=== PATIENT | female | born 1985 | race Caucasian/White ===

== ENCOUNTER 2022-09-11 08:10 | Emergency (ER) | payer BC, SELFPAY ==
[2022-09-11 09:14] VITALS: BP 121/88; PULSE 76; RESP 16; TEMP 36.6; O2SAT 97; BMI 32.4
--- NOTE | 2022-09-11 09:47 | CRLHL7_ITS ---
For Patients: As a result of the Century Cures Act, medical imaging exams and procedure reports are released immediately into your electronic medical record. You may view this report before your referring provider. If you have questions, please contact your health care provider. HISTORY: Calf pain. Injury. TECHNIQUE: Ultrasound of the left lower extremity deep veins using perez-scale, color Doppler, and spectral Doppler. COMPARISON: None. FINDINGS: Left: Common femoral, femoral, and popliteal veins are patent and compressible with normal response to augmentation. Deep femoral vein is patent and compressible. - Posterior tibial, peroneal, and gastrocnemius veins are patent and compressible - Greater saphenous vein is patent and compressible. - In the medial calf at the area of pain there is a small, approximately 1 cm irregularly shaped hypoechoic region at the distal margin of a muscle or within the fascial plane between muscle and subcutaneous fat. IMPRESSION: 1. No left lower extremity DVT. 2. Small hypoechoic region at the distal margin of a muscle or along the fascial plane between muscle and subcutaneous fat in the medial calf at the area of pain. Appearance is nonspecific but given history could be small area of muscle tearing or small hematoma. This area could be better assessed with MRI if warranted. Dictated by Rory Song MD @ 09/11/2022 12:01:21 PM (Electronically Signed)
--- NOTE | 2022-09-11 09:47 | ED.GENADULT ---
HPI - General Adult General Chief complaint: Lower Extremity Swelling Stated complaint: LT leg swelling and pain Time Seen by Provider: 09/11/22 08:52 History of Present Illness HPI narrative: This 37-year-old female comes in with pain in her left calf. She states that she has been having some pain in this calf for about 2 or 3 weeks but was able to function rather normally. Yesterday she was playing basketball and there was 1 moment where she had sudden onset of pain and heard a pop in the mid posterior calf musculature of the left lower extremity. She is able to ambulate. She has pain with dorsiflexion of that left foot. There is no particular swelling or bruising of the left lower extremity compared to the right. She does not have any history of blood clot. Related Data Previous Rx's Medication Instructions Recorded Crutches- Adult #1 ea 09/11/22 Allergies Allergy/AdvReac Type Severity Reaction Status Date / Time amoxicillin Allergy Mild Rash Verified 09/11/22 09:19 Review of Systems Status of ROS: Reports: 10 or more systems reviewed and unremarkable except as noted in History and below Narrative: Constitutional: No fevers, no weight gain or loss. Eyes: No discharge. No vision changes. HENT: No congestion, no sore throat, no ear pain. Cardiovascular: No chest pain, no palpitations. Respiratory: No shortness of breath, no wheezes, no cough. Gastrointestinal: No abdominal pain, no vomiting, no diarrhea. Genitourinary: No dysuria, no hematuria. Musculoskeletal: Left calf pain with associated decreased range of motion. Skin: No rashes, no pruritis. Neurological: No dizziness, weakness, sensory change, speech change. Endo/Heme/Allergies: No bruising or bleeding. No polydipsia. Pysch: no suicidality, no anxiety, no insomnia. All other systems reviewed and are negative. PFSH PFSH Social History Smoking Status: Never smoker Do you use any of these nicotine containing products: None Second hand tobacco smoke exposure: No How often do you have a drink containing alcohol: monthly or less AUDIT-C Alcohol total score: 1 Non-prescribed substance use: denies use Exam Narrative: Exam Narrative: Constitutional: Well-developed, well-nourished, no acute distress. HEENT: Normocephalic, atraumatic. Neck: Normal range of motion. Nontender. Supple. Heart: Regular. No murmurs. Normal rate. Intact distal pulses. Lungs: Clear to auscultation. No chest discomfort. No wheezes, rhonchi, or rales. Abdomen: Normal bowel sounds. Nontender. No rebound tenderness. Genitalia: Deferred. Back: No midline tenderness. Normal range of motion. Extremities: Pain in left calf region that is located about [address] between the knee to the ankle. There is no significant swelling and no bruising. There is no palpable step-off. Bray's sign is negative. Skin: Intact. No rash. Warm. No erythema or pallor. Neurologic: No altered sensation. No weakness. Alert and oriented. Psychiatric: No suicidality. No anxiety or depression. No insomnia. Nursing notes and vitals signs are reviewed. Const: Vital Signs, click to edit/add: Vital Signs - 24 hr 09/11/22 09:14 Temperature 97.8 F Pulse Rate [Right Pulse Oximeter] 76 Respiratory Rate 16 Blood Pressure [Le ft Upper Arm] 121/88 Pulse Oximetry 97 Oxygen Delivery Me thod Room Air Course Vital Signs Vital signs: Initial Vital Signs Temperature 97.8 F 09/11/22 09:14 Temperature Source Temporal Artery Scan 09/11/22 09:14 Pulse Rate 76 09/11/22 09:14 Respiratory Rate 16 09/11/22 09:14 Blood Pressure 121/88 09/11/22 09:14 Blood Pressure Mean 99 09/11/22 09:14 Blood Pressure Position Supine 09/11/22 09:14 Pulse Oximetry 97 09/11/22 09:14 Oxygen Delivery Method 09/11/22 09:14 Vital Signs Temperature 97.8 F 09/11/22 09:14 Pulse Rate 76 09/11/22 09:14 Respiratory Rate 16 09/11/22 09:14 Blood Pressure 121/88 09/11/22 09:14 Pulse Oximetry 97 09/11/22 09:14 Oxygen Delivery Method 09/11/22 09:14 Temperature 97.8 F 09/11/22 09:14 Pulse Rate 76 09/11/22 09:14 Respiratory Rate 16 09/11/22 09:14 Blood Pressure 121/88 09/11/22 09:14 Pulse Oximetry 97 09/11/22 09:14 Oxygen Delivery Method 09/11/22 09:14 Medical Decision Making MDM Narrative Medical decision making narrative: This patient comes in with pain in her left lower calf musculature. She felt a pop yesterday and wonders if she had a rupture of the muscle. She did have an ultrasound of the left lower extremity which shows no sign of deep venous thrombus. There is a finding that is suggestive of partial muscle tear. An MRI would better characterize this but given the patient's reassurance with no blood clot in the mechanism of injury that is suspicious for a muscle tear that is not complete rupture such imaging is not necessary at this time. Her Bray's test is displaying intact plantar flexion mechanism. Patient is able to ambulate but has distinct and severe pain attempting to step forward and plantar flex her left foot. She received crutches to assist in ambulating. She states that she will use [id number] medicines as needed and directed. Imaging Data US L Lower Extremity: Radiologist's impression: 1. No left lower extremity DVT. 2. Small hypoechoic region at the distal margin of a muscle or along the fascial plane between muscle and subcutaneous fat in the medial calf at the area of pain. Appearance is nonspecific but given history could be small area of muscle tearing or small hematoma. This area could be better assessed with MRI if warranted. Discharge Plan Discharge Clinical Impression: Gastrocnemius muscle tear Patient Disposition: Home, Self-Care Condition: Stable Additional Instructions: Use crutches as needed. Increase ambulating as tolerated. Follow up with MD or return if worsening. Prescriptions: New (DME) Crutches- Adult Misc See Rx Instructions .ROUTE .MEDSUPPLY Qty: 1 0RF Rx Instructions: As directed Follow Up/Referrals: Rei Pat MD [Primary Care Provider] - Stand Alone Forms: [employer] Info Instructions
[2022-09-11 10:00] VITALS: BP 118/85; PULSE 72; RESP 18; O2SAT 97
--- OUTSIDE RECORDS SUMMARY | 2022-09-11 10:07 | XMS_ITS | Encounter Summary ---
:1985 Author Organization [facility] Address [address] [place] [id number] Care Team Providers Name Role Phone Rei Pat Primary Care Provider [facility] Unavailable Encounter Details Date Type Department Care Team Description 10/01/2019 Travel Social History Tobacco Use Types Packs/Day Years Used Date Smoking Tobacco: Never Smokeless Tobacco: Never Alcohol Use Standard Drinks/Week Comments Never 0 (1 standard drink = 0.6 oz pure alcoho l) Alcohol Habits Answer Date Recorded How often do you have a drink containing alcohol? Never 10/01/2019 How many drinks containing alcohol do you have on a typical Not asked day when you are drinking? How often do you have six or more drinks on one occasion? No t asked Sex Assigned at Date Recorded Not on file documented as of this encounter Plan of Treatment Not on filedocumented as of this encounter Visit Diagnoses Not on filedocumented in this encounter Care Teams Bark Peeler Relationship Specialty Start Date End Date Rei Pat PCP - General Family Medicine 10/01/19 [address] [place] [address] [facility] PCP - [facility] [place] [address] [place] [id number] documented as of this encounter
--- OUTSIDE RECORDS SUMMARY | 2022-09-11 10:07 | XMS_ITS | Encounter Summary ---
:1985 Author Organization [facility] Address [address] [place] [id number] Care Team Providers Name Role Phone Rei Pat Primary Care Provider [facility] Unavailable Reason for Referral (Routine) - Closed Specialty Diagnoses / Procedures Referred By Contact Refer red To Contact Procedures Shahriar Gupta MD Return to previous diet [address] [place] [place] [address] Referral ID Status Reason Start Date Expiration Date Visits Requ ested Visits Authorized [id number] Closed 10/02/2019 10/01/2020 1 1 ER MAN (Routine) - Closed Specialty Diagnoses / Procedures Referred By Contact Refer red To Contact Procedures Shahriar Gupta MD Normal activity as tolerated [address] [place], [place] [address] Referral ID Status Reason Start Date Expiration Date Visits Requ ested Visits Authorized [id number] Closed 10/02/2019 10/01/2020 1 1 ER MAN (Routine) - Closed Specialty Diagnoses / Procedures Referred By Contact Refer red To Contact Shahriar Gupta MD Hoffert, Kyle A [address] [facility] [place], [place] [address] [place] [address] Fax: Referral ID Status Reason Start Date Expiration Date Visits Requ ested Visits Authorized [id number] Closed 10/02/2019 10/01/2020 1 1 ER MAN (Routine) - Closed Specialty Diagnoses / Procedures Referred By Contact Refer red To Contact Procedures Shahriar Gupta MD Other: [address] [address] Referral ID Status Reason Start Date Expiration Date Visits Requ ested Visits Authorized [id number] Closed 10/02/2019 10/01/2020 1 1 ER MAN (Routine) - Closed Specialty Diagnoses / Procedures Referred By Contact Refer red To Contact Procedures Shahriar Gupta MD Any questions or concerns [address] [address] Referral ID Status Reason Start Date Expiration Date Visits Requ ested Visits Authorized [id number] Closed 10/02/2019 10/01/2020 1 1 ER MAN (Routine) - Closed Specialty Diagnoses / Procedures Referred By Contact Refer red To Contact Procedures Shahriar Gupta MD Discharge [address] [address] Referral ID Status Reason Start Date Expiration Date Visits Requ ested Visits Authorized [id number] Closed 10/02/2019 10/01/2020 1 1 ER MAN Reason for Visit Reason Comments Post-surgical post op complications Inpatient Admission Specialty Diagnoses / Procedures Referred By Contact Refer red To Contact Diagnoses Vasovagal syncope Referral ID Status Reason Start Date Expiration Date Visits Requ ested Visits Authorized [id number] 1 1 Encounter Details Date Type Department Care Team Description 10/01/2019 - Emergency W2 Lion Pruett MD [address] [facility] [address] [place] [address] Vasovagal syncope 10/02/2019 33[address] [facility]-Hospitalist [address] [place] [address] [address] Miladys Thomas MD [address] [place] [id number] [place] [address] Social History Tobacco Use Types Packs/Day Years [...] on file documented as of this encounter Last Filed Vital Signs Vital Sign Reading Time Taken Comments Blood Pressure 104/61 10/02/2019 1:25 PM TILLER MAN Pulse 83 10/02/2019 1:25 PM TILLER MAN Temperature 37 ??C (98.6 ??F) 10/02/2019 1:25 PM TILLER MAN Respiratory Rate 16 10/02/2019 1:25 PM TILLER MAN Oxygen Saturation 99% 10/02/2019 1:25 PM TILLER MAN Inhaled Oxygen Concentration - - Weight 79.5 kg (175 lb 5 oz) 10/01/2019 6:00 PM TILLER MAN Height 172.1 cm (5' 7.76) 10/01/2019 6:00 PM TILLER MAN Body Mass Index 26.85 10/01/2019 6:00 PM TILLER MAN documented in this encounter Discharge Summaries Shahriar Gupta MD - 10/02/2019 12:45 PM CST Images from the original note were not included. . [facility] DIS[facility]GE SUMMARY Patient Name: Sanjana Guzman Date of : 1985 Attending Provider: Tabatha-Hospitalist Admission Date: 10/01/2019 Discharge Date: 10/02/2019 She will be discharged on 10/02/19 to home. DISCHARGE DIAGNOSES: Vasovagal Syncope Acute Blood Loss anemia from surgrery DISCHARGE MEDICATIONS: Current Discharge Medication List UNREVIEWED MEDICATIONS Details ciprofloxacin HCl (CIPRO) 500 mg oral tablet TAKE 1 TABLET BY MOUTH TWICE A DAY STARTING THE DAY AFTER SURGERY. TAKE UNTIL ALL GONE Refills: 0 Lactobac no.41/Bifidobact no.7 (PROBIOTIC-10 ORAL) Take 1 capsule by mouth once daily. multivitamin (CERTAVITE) 18-400 mg-mcg oral tablet Take 1 tablet by mouth once daily. ondansetron (ZOFRAN) 8 mg oral ODT DISSOLVE 1 TABLET IN MOUTH EVERY 8 HOURS NEEDED FOR NAUSEA ANDVOMITING Refills: 0 oxyCODONE, immediate release, (ROXICODONE) 5 mg oral tablet TAKE 1 TABLET BY MOUTH EVERY 4 TO 6 HOURS NEEDED FOR PAIN Refills: 0 scopolamine 1mg/72 hours, 1.5mg, (TRANSDERM-SCOP) 1 mg over 3 days TD patch Apply 1 patch to skin ONCE. FOLLOWUP: No discharge procedures on file. F/u in 2-3 days for hgb check PENDING TEST RESULTS: n/a HOSPITAL COURSE: This is a 34yo female with no PMH who presents from outpatient surgical center ([facility]) after abdominoplasty and bilateral mastopexy. ED physician spoke with surgeon, Dr. Garcia, who said that surgery was uneventful with ~500cc of blood loss. Patient says she was in PACU and had juice and crackers without problems. She as asked to sit up to try to pee and she felt light headed and passed out. She was noted to have HR in the 30s to 40s which recovered shortly after laying patient down. She says she woke up, felt better and was then asked to get up again to try to pee.She tried and again felt lightheaded. HR noted to drop again. She was given 4L IVF as well as a doseof epinephrine and transferred to [facility]. Hgb noted to be down to 7.7 (presumed normal baseline). Patient given fluids and hg trended and stable. Patient safe for discharge home. 1. Vasovagal Syncope - Likely secondary to anesthesia post op. Has had nausea/vomiting, chill and lightheadedness after anesthesia in the past. Received 4L IVF. HR and BP stable currently ?? 2. Acute Blood Loss anemia from surgrery - Pre op hgb 13.3,now down to 7.7, stable at 8 on discharge -f/u with PCP in 2-3 days for hgb check ?? S/p abdominoplasty and bilateral mastopexy - post ob cares per plastic surgery - Abdominal binder and breast binder in place - MISSY drain in place. - prn oxycodone ?? DISCHARGE EXAM: General appearance: awake and alert HEENT: Head - normocephalic, atraumatic Eyes - normal lids and conjunctivae, PERRLA, EOMs intact RESPIRATORY: lungs clear to auscultation and percussion, normal diaphragmatic movement, chest symmetrical BREASTS: breast wrapped with binder. Tender. MISSY drain in place with serosanguinous fluid noted CARDIOVASCULAR: normal S1, normal S2, regular rhythm GASTROINTESTINAL: Abdomen with abdominal binder NEUROLOGIC: alert and oriented x 4, moves all extremities EXTREMITIES: Bilateral leg swelling, non pitting : Voiding independently PSYCHOLOGICAL/JUDGEMENT: intact/normal PROCEDURES: n/a IMAGING: n/a LABS: n/a Shahriar Gupta MD Time: 30 minutes or less ER MAN documented in this encounter Medications at Time of Discharge Medication Sig Dispensed Refills Start Date End Date ciprofloxacin HCl (CIPRO) TAKE 1 TABLET BY 0 03/2019 500 mg oral tablet MOUTH TWICE A DAY STARTING THE DAY AFTER SURGERY. TAKE UNTIL ALL GONE Lactobac no.41/Bifidobact Take 1 capsule by 0 no.7 (PROBIOTIC-10 ORAL) mouth once daily. multivitamin (CERTAVITE) Take 1 tablet by 0 18-400 mg-mcg oral tablet mouth once daily. ondansetron (ZOFRAN) 8 mg DISSOLVE 1 TABLET IN 0 09/18/2019 oral ODT MOUTH EVERY 8 HOURS NEEDED FOR NAUSEA AND VOMITING oxyCODONE, immediate TAKE 1 TABLET BY 0 9 release, (ROXICODONE) 5 mg MOUTH EVERY 4 TO 6 oral tablet HOURS NEEDED FOR PAIN scopolamine 1mg/72 hours, Apply 1 patch to skin 0 1.5mg, (TRANSDERM-SCOP) 1 ONCE. mg over 3 days TD patch documented as of this encounter Progress Notes Agnes Olea RN - 10/02/2019 1:32 PM CST Sanjana Guzman 1985 [id number] P: Discharge A: Discharged via wheelchair to home at 1332 escorted by volunteer I: Discharge information and arrangements included: review of written discharge instructions, reviewof purpose and side effects of new medication, belongings list completed. R:Patient expressed understanding of information. BP 104/61 Pulse 83 Temp 98.6 ??F (37 ??C) Resp 16 Ht 1.721 m (5' 7.76) Wt 79.5 kg (175 lb5 oz) SpO2 99% ? No BMI 26.85 kg/m?? ER MAN Sofiya Rendon RN - 10/02/2019 8:42 AM CST Med-Surg Care Progression Note Type: Shift to shift summary Length of stay: 0 days Code Status: Full Code Reason for Admission: Vasovagal syncope F- Feeding Progression: Tolerating Diet Fluids Progression: IVF, infusing A- Analgesic Progression: Pain at goal with interventions S- Skin Progression: Total Trey Score: 17: Maintaining skin integrity/pressure prevention and Maintaining Skin integrity Safety Progression: Hendrich II Total Score: 4; Not falls risk T- Telemetry Progression: Telemetry can be discontinued when goal met. Treatment Progression: BP monitoring, IVF, tele, pain management. E- Emotional Needs Progression: Participating in cares and Appropriate affect Neuro Progression: Alert and Oriented R- Respiratory Needs Progression: On room air cont. to monitor H- Head OUT of Bed/Activity Progression: didn't get up during shift. U- Ultimate Discharge Progression: TBD Anticipated Disposition: Plan to: Home Anticipated Equipment/Supply Needs: None G- Glycemic Control Progression: Not applicable B- Bowel and Bladder Care Progression: No data recorded On bowel regimen/regular I- Indwelling/Invasive Devices Progression: PIV, infusing. D- DVT/Anticoagulation Progression: SCDs Summary BP (!) 96/59 Pulse 94 Temp 98.5 ??F (36.9 ??C) Resp 18 Ht 5' 7.76 (1.721 m) Wt 79.5 kg (175 lb 5 oz) SpO2 98% ? No BMI 26.85 kg/m?? PT. Alert and oriented. BP running low, notified MD order IVF. Running @ 100 mL/hr. Denied lightheadedness, or dizziness. Significant other at bedside. ER MAN Sofiya Rendon RN - 10/02/2019 6:42 AM CST 10/02/19 0600 RN to Assess Every Four Hours Observation Order Set(s) in Use General (No Observation Order Set);Abdominal Pain Syncope Stable Vital Signs Not Completed No Significant Telemetry Alarms / Events For 8 Hours Completed Acceptable Home Environment Not Completed Completion Of Ordered Tests / Interventions Not Completed Abdominal Pain Resolution Or Significant Improvement Of Pain Completed Stable Vital Signs Not Completed Able To Tolerate Oral Fluids Completed General (No Observation Order Set) Pain Resolved or With Significant Improvement Completed Stable Vital Signs Not Completed Able to Take p.o. Medications Completed Significant Improvement of Clinical Condition Not Completed Adequate Intake and Output Completed Completion of Diagnostic Evaluation Not Completed ER MAN Eloisa Dey RN - 10/01/2019 11:55 PM CST Med-Surg Care Progression Note Type: Admission summary Length of stay: 0 days Code Status: Full Code Reason for Admission: F- Feeding Progression: Tolerating Diet Fluids Progression: SL'd, tolerating PO A- Analgesic Progression: Pain at goal with interventions, PRN Oxy given x2 with relief S- Skin Progression: Total Trey Score: 17: Maintaining skin integrity/pressure prevention, abdominal binder in place Safety Progression: Hendrich II Total Score: 2; Falls risk - interventions in place red socks on, bed alarm on, call light within reach T- Telemetry Progression: On tele, no calls this shift Treatment Progression: Pain control, serial Hgb's, monitor BP E- Emotional Needs Progression: Participating in cares and Appropriate affect, at bedside Neuro Progression: Alert and Oriented R- Respiratory Needs Progression: On room air cont. to monitor RN ordered SAO2 monitor per patient request. Still needs to be set up, passed on to oncoming nurse H- Head OUT of Bed/Activity Progression: has not gotten OOB this shift U- Ultimate Discharge Progression: Pain control, serial Hgb's, monitor BP Anticipated Disposition: Plan to: Home Anticipated Equipment/Supply Needs: None G- Glycemic Control Progression: Not applicable B- Bowel and Bladder Care Progression: No data recorded On bowel regimen/regular, using bed rfias I- Indwelling/Invasive Devices Progression: PIV SL'd. left MISSY drain D- DVT/Anticoagulation Progression: SCDs Summary: MISSY drain to be stripped and emptied Q 2 hrs. BP's have been MD sid paged. Last hgb 9.0, will continue to monitor. Eloisa Dey RN BP 105/64 Pulse 89 Temp 98 ??F (36.7 ??C) Resp 13 Ht 1.721 m (5' 7.76) Wt 79.5 kg (175 lb5 oz) SpO2 95% ? No BMI 26.85 kg/m?? ER MAN Eloisa Dey RN - 10/01/2019 11:55 PM CST 10/01/192004 RN to Assess Every Four Hours Observation Order Set(s) in Use Syncope;General (No Observation Order Set) Syncope Stable Vital Signs Not Completed No Significant Telemetry Alarms / Events For 8 Hours Not Completed Acceptable Home Environment Completed Completion Of Ordered Tests / Interventions Completed General (No Observation Order Set) Pain Resolved or With Significant Improvement Completed Stable Vital Signs Not Completed Able to Take p.o. Medications Completed Significant Improvement of Clinical Condition Not Completed Adequate Intake and Output Completed Completion of Diagnostic Evaluation Not Completed ER MAN Wilian Elise MD - 10/01/2019 8:48 PM CST I was paged that patient pain is now well controlled with oral opioid. Patient chart was reviewed I added Dilaudid 0.4 mg every 2 hour as needed if oral pain medication is not keeping her pain undercontrol. ER MAN Damaris Murphy RN - 10/01/2019 7:18 PM CST P. Admission A. Condition on Admit: alert. Patient/Family Concerns: Patient expressed concern about pain relief, falling and getting help whenneeded. I. Initial Interventions included: administered medication for NAUSEA AND HEADACHE. Orientation to Unit: Patient oriented to how to call for help, name of assigned wound care specialist, PatientInformation booklet, initial physician orders, hourly rounding procedures, belongings checklist. R. Patient expressed understanding of information.. ER MAN Damaris Murphy RN - 10/01/2019 6:55 PM CST Page out to MD to update with B/P of / ER MAN documented in this encounter H&P Notes Miladys Thomas MD - 10/01/2019 4:12 PM CST Images from the original note were not included. [facility] ADMISSION HISTORY AND PHYSICAL Patient Name: Sanjana Guzman Address: [address] [place] [address] Age: 34 y.o. Sex: female Admission Date/Time: 10/01/2019 2:52 PM Primary Care Provider: Rei Pat Informant: patient CHIEF COMPLAINT: Passed out post op HPI: This is a 34yo female with no PMH who presents from outpatient surgical center ([facility]) after abdominoplasty and bilateral mastopexy. ED physician spoke with surgeon,Dr. Garcia, who said that surgery was uneventful with ~500cc of blood loss. Patient says she was in PACU and had juice and crackers without problems. She as asked to sit up to try to pee and she feltlight headed and passed out. She was noted to have HR in the 30s to 40s which recovered shortly after laying patient down. She says she woke up, felt better and was then asked to get up again to try topee. She tried and again felt lightheaded. HR noted to drop again. She was given 4L IVF as well as adose of epinephrine and transferred to [facility]. In the ED, VSS. Patient says she feels much better but has not been up yet. Lab work notable for hgbof 7.7. She is placed in observation for further monitoring. PAST MEDICAL HISTORY: Past Medical History: Diagnosis Date ??? Acne ??? Anemia with 2011 ??? Motion sickness ??? Palpitations ??? Shoulder sprain ??? Tonsillitis ??? Warts PAST SURGICAL HISTORY: Past Surgical History: Procedure Laterality Date ??? COLPOSCOPY, CERVIX ??? HX HERNIA REPAIR ??? HX TONSIL AND ADENOIDECTOMY PRIOR TO ADMISSION MEDICATIONS: Prior to Admission Medications Prescriptions Last Dose Informant Patient Reported? Taking? Lactobac no.41/Bifidobact no.7 (PROBIOTIC-10 ORAL) 09/30/2019 Patient Yes Yes Sig: Take 1 capsule by mouth once daily. ciprofloxacin HCl (CIPRO) 500 mg oral tablet not started Patient Yes Yes Sig: TAKE 1 TABLET BY MOUTH TWICE A DAY STARTING THE DAY AFTER SURGERY. TAKE UNTIL ALL GONE multivitamin (CERTAVITE) 18-400 mg-mcg oral tablet 09/30/2019 Patient Yes No Sig: Take 1 tablet by mouth once daily. ondansetron (ZOFRAN) 8 mg oral ODT 09/30/2019 Patient Yes Yes Sig: DISSOLVE 1 TABLET IN MOUTH EVERY 8 HOURS NEEDED FOR NAUSEA AND VOMITING oxyCODONE, immediate release, (ROXICODONE) 5 mg oral tablet Patient Yes Yes Sig: TAKE 1 TABLET BY MOUTH EVERY 4 TO 6 HOURS NEEDED FOR PAIN scopolamine 1mg/72 hours, 1.5mg, (TRANSDERM-SCOP) 1 mg over 3 days TD patch 10/01/2019 Patient Yes Yes Sig: Apply 1 patch to skin ONCE. Facility-Administered Medications: None ALLERGIES: Amoxicillin FAMILY HISTORY: Family History Problem Relation Name Age of Onset ??? High Blood Pressure Father ??? Heart Disease Father SOCIAL HISTORY: Social History Tobacco Use ??? Smoking status: Never Smoker ??? Smokeless tobacco: Never Used Substance Use Topics ??? Alcohol use: Never Frequency: Never ??? Drug use: Never REVIEW OF SYSTEMS: A comprehensive review of systems was negative except for items noted in the HPI/Subjective: Constitutional: Negative for fever and chills Eyes: Negative for visual disturbance Ears, nose, mouth, throat, face: Negative for nasal congestion, sore throat Respiratory: Negative for cough, dyspnea Cardiovascular: Positive for lightheadedness. Negative for chest pain, chest pressure Gastrointestinal: Positive for nausea, abdominal pain Genitourinary: Negative for dysuria Musculoskeletal: Negative for myalgias and arthralgias Neurological: Negative for headaches and dizziness Psychiatric: Negative for anxiety and depression Otherwise a comprehensive ROS is negative. PHYSICAL EXAM: BP 110/69 Pulse 78 Resp 17 SpO2 99% General appearance: awake and alert HEENT: Head - normocephalic, atraumatic Eyes - normal lids and conjunctivae, PERRLA, EOMs intact RESPIRATORY: lungs clear to auscultation and percussion, normal diaphragmatic movement, chest symmetrical BREASTS: breast wrapped with binder. Tender. MISSY drain in place with serosanguinous fluid noted CARDIOVASCULAR: normal S1, normal S2, regular rhythm GASTROINTESTINAL: Abdomen with abdominal binder NEUROLOGIC: alert and oriented x 4, moves all extremities EXTREMITIES: Bilateral leg swelling, non pitting : Voiding independently PSYCHOLOGICAL/JUDGEMENT: intact/normal PROCEDURES: None IMAGING: none LABS: Results for orders placed or performed during the hospital encounter of 10/01/19 (from the past 24 hour(s)) CBC w/diff Result Value Ref Range WBC 10.1 4.3 - 10.8 K/uL RBC 2.47 (L) 4.20 - 5.40 M/uL HEMOGLOBIN 7.7 (L) 12.0 - 16.0 gm/dL HEMATOCRIT 22.9 (L) 36.0 - 48.0 % MCV 93 80 - 100 fl MCH 31 27 - 33 pg MCHC 34 33 - 36 gm/dL RDW 12.3 11.5 - 14.5 % PLATELET COUNT 202 150 - 400 K/UL MPV 10.6 6.5 - 12 PMN % 90.6 % IG% 0.3 <=1.0 % LYMPH % 3.6 % MONO % 5.4 % EOS % 0.0 % BASO % 0.1 % PMN ABSOLUTE 9.16 (H) 1.80 - 7.80 K/uL IG ABSOLUTE 0.03 K/uL LYMPH ABSOLUTE 0.36 (L) 1.00 - 4.00 K/uL MONO ABSOLUTE 0.55 0.00 - 1.00 K/uL EOS ABSOLUTE 0.00 0.00 - 0.45 K/uL BASO ABSOLUTE 0.01 0.00 - 0.20 K/uL NUCL RBC % 0.0 0.0 - 0.0 /100 WBC NUCL RBC ABSOLUTE 0.00 0.00 - 0.00 K/uL EKG Result Value Ref Range EKG EKG: Sinus Rhythm No ischemic changes ADDITIONAL COMMENTS: I reviewed the patient's new clinical lab test results. I reviewed the patient's medications. ASSESSMENT: Active Problems: Vasovagal syncope PLAN: 1. Vasovagal Syncope - Likely secondary to anesthesia post op. Has had nausea/vomiting, chill and lightheadedness after anesthesia in the past. - Received 4L IVF - HR and BP stable currently - Monitor on tele. 2. Acute Blood Loss anemia from surgrery - Pre op hgb 13.3,now down to 7.7 - She has abdominal drain in place about 25% full of serosanguinous fluid - Will monitor hgb q12h 3. Post op Day 0 of abdominoplasty and bilateral mastopexy - Start post op antibiotics as ordered by surgery - Abdominal binder and breast binder in place - MISSY drain in place. - prn oxycodone - Plastic surgery consulted in the ED. Dr. Garcia will see this evening or in am. CODE STATUS: Full Code DVT prophylaxis: SCDs GI prophylaxis: Diet ordered ACCESS: PIV RESTRAINTS: None DISPOSITION: Anticipated date of discharge 24h, Criteria for discharge is improvement in lightheadedness and able to ambulate without symptoms. LENGTH OF STAY: OBS - Anticipated LOS <2 Midnights due to need for diagnostic workup of acute condition Time: 30 minutes Miladys Thomas MD ER MAN documented in this encounter Nursing Notes Mendy Harrington RN - 10/02/2019 12:12 PM CST Discharge Planning Initial Assessment Patients chart reviewed. Patient discussed in rounds. Admitting diagnoses: Vasovagal syncope [R55] Admitted from: Home Prior: Living Arrangements: Spouse/significant other Support Systems: Spouse/significant other Primary decision maker: Patient no HCD on file DME prior to admission: none Anticipated Discharge Needs: none identified Care coordination initiated: Patient was discussed in care progression rounds with the interdisciplinary team. Per discussion in rounds, pt will likely d/c home with no anticipated d/c needs. As such, pt will be considered an RN d/c. Should d/c needs arise, please page/call Ventilation Equipment Tender to update. Barriers to discharge: medical clearance Care management is available should further needs arise. ERLIN Jaeger, senior procurement manager Pager: [phone] ER MAN documented in this encounter ED Notes Eros Snell RN - 10/01/2019 5:24 PM CST Care Progression Note: Admission Summary Reason for Admission: Vasovagal syncope F- Feeding Progression: NPO so far but tolerated water with pills. Fluids Progression: Saline lock A- Analgesic Progression: Difficult pain management S- Skin Progression: Maintaining skin integrity/pressure prevention, Head-to-toe assesment complete and Skin impairments noted - see flowsheet Safety Progression: Hendrich II Total Score: 2; Falls risk - interventions in place green band, reminders T- Telemetry Progression: Tier 2 Treatment Progression: Unknown E- Emotional Needs Progression: Participating in cares, Appropriate affect and Updated family/SO Neuro Progression: Alert and Oriented R- Respiratory Needs Progression: On room air cont. to monitor H- Head OUT of Bed/Activity Progression: Not tested in ED U- Ultimate Discharge Progression: Current living situation - Home with family G- Glycemic Control Progression: Not applicable B- Bowel and Bladder Care Progression: Continent I- Indwelling/Invasive Devices Progression: IV access: Peripheral D- DVT/Anticoagulation Progression: Not applicable Reason requiring this level of care: Pt requires further eval for syncope and some anemia. Plastics called for consult. Pt reports minor relief from pain after oral Oxycodone. Pt has been urinating frequently in fracture frias and is able to assist with voiding. ER MAN Bernice Hawthorne RN - 10/01/2019 3:03 PM CST Pt arrives via EMS from [facility] pt surgery center S/P breast lift and tummy tuck. Pt had 2 syncopal episodes while trying to get up to void. EMS report HR was 30 and HGB 9, 5000 ml IVF RADIATION / CHEMISTRY TECHNICIAN, Fentanyl [id number]. Pt has 2 PIV's in LUE. ER MAN Lion Pruett MD - 10/01/2019 2:57 PM CST Images from the original note were not included. CHIEF COMPLAINT: Post-surgical complications HPI: Initial history obtained at 2:57 PM 10/01/19. Sanjana Guzman is a 34 y.o. female who presents to the emergency department via EMS for evaluation of post-surgical complications. Patient underwent abdominoplasty and bilateral mastopexy today withDr. Garcia. There were no complications with surgery and she notes normally having post-sedation nausea. After her catheter was removed she had an urge to use the bathroom. She sat up quickly but felt lightheaded, was bradycardic into the 30's, and fainted. She was given a dose of IV ephedrine and atotal of 4 liters of fluids. She did better after these interventions, but while trying to get up a second time her heart rate went into the 40's and she passed out again. Patient hemoglobin was 9.4. She was transferred here for further evaluation and observation. Here she denies lightheadedness, nausea, leg pain, or leg swelling. She has had some sips of diet coke and apple juice, but otherwise has not had anything to eat since 1729 yesterday. MEDICATIONS: ciprofloxacin HCl (CIPRO) 500 mg oral tablet Lactobac no.41/Bifidobact no.7 (PROBIOTIC-10 ORAL) multivitamin (CERTAVITE) 18-400 mg-mcg oral tablet ondansetron (ZOFRAN) 8 mg oral ODT oxyCODONE, immediate release, (ROXICODONE) 5 mg oral tablet ALLERGIES: Amoxicillin PAST MEDICAL HISTORY: Anemia Motion sickness Palpitations Tonsillitis PAST SURGICAL HISTORY: Hernia repair Tonsillectomy and adenoidectomy Abdominoplasty, bilateral mastopexy FAMILY HISTORY: Hypertension, heart disease - father SOCIAL HISTORY: The patient is . The patient does not smoke tobacco and does not consume alcohol. REVIEW OF SYSTEMS: Review of Systems Gastrointestinal: Positive for nausea. Neurological: Positive for syncope and light-headedness. All other systems reviewed and are negative. PHYSICAL EXAM: Physical Exam Temp: (not recorded) Pulse: (not recorded) Resp: (not recorded) BP: (not recorded) SpO2: (not recorded) Nursing note and vitals reviewed. Constitutional: Looks mildly pale, non-toxic. HENT: Head: Normocephalic and atraumatic. Mouth/Throat: Oropharynx is clear. Mucous membranes mildly dry. Eyes: Conjunctivae are normal. Pupils are equal, round, and reactive to light. No scleral icterus. Neck: No meningismus. No lymphadenopathy Cardiovascular: Normal rate. Regular rhythm. Normal heart sounds, no murmur or friction rub. Intact distal pulses. Pulmonary/Chest: Normal effort, no respiratory distress. Breath sounds normal. Abdominal: Soft. Non-tender. No rebound or guarding. Normal bowel sounds. No masses. NII wrap and bandaging around chest and abdomen, not removed. Drainage bulb with blood coming from her abdominal wound. Musculoskeletal: No lower extremity edema. No tenderness. No deformity. Compression stockings to theknees. Neurological: Alert and oriented x3. No focal neurologic deficit. Skin: Warm and dry. No rash. Psychiatric: Normal mood and affect. ED COURSE: EKG: (1556 Hours): Indication: Syncope Ventricular Rate: 71 QRS [place]: 31 Intervals: UT 168, QRS 85, QTc 409 Interpretation: Sinus rhythm. Nonspecific T-wave abnormality. Laboratory: CBC with Differential: RBC 2.47 (Low), HGB 7.7 (Low), HEMATOCRIT 22.9 (Low), ANC 9.16 (High), LYMPH ABSOLUTE 0.36 (Low), o/w WNL (WBC 10.1, PLT 202) Type & Screen: Pending Interventions: 1525: Oxycodone 10 mg, PO Consultations/Notable Events: Patient was discussed with plastic surgeon Dr. Garcia. ED Vitals: Patient Vitals for the past 24 hrs: BP Pulse Resp SpO2 10/01/19 1600 110/69 78 17 99 % 11/18/19 1545 105/66 89 22 93 % MDM: Sanjana Guzman is a 34 y.o. female who at an outpatient surgical center had a tummy tuck and breast reduction. In the PACU she was recovering and when they went to sit her up to go to the bathroom she became hypotensive. They sat her up again and she had a vasovagal syncopal event. She then developed significant bradycardia and hypotension. Ultimately she was resuscitated with 4 liters total of crystalloids and a dose of epinephrine. She arrives in the ER feeling much better. She does report a long standing history of post-surgical nausea and lightheadedness, but this is definitely the worst event she has ever had. She does currently have a scopolamine patch in place. Patient says currently she is having a mild to moderate amount of pain, which she was told to expect. She has had one dose of Oxycodone orally at about noon, so I gave her another dose here. She is okayed for regular diet. She is vitally stable here and is really reporting no other abnormalities. I did speak to Dr. Garcia, who is her plastic surgeon, he will come by and see the patient later. I did report to him a hemoglobin of 7.7, down from a preoperative hemoglobin of 13.3 on 09/17. He says this is not necessarily unexpected given the number of crystalloids she had and post-surgical bloodloss of about 500 cc. As long as she is vitally stable and serial hemoglobins are stable, he would not feel the need to transfuse or do any imaging for this. Patient actually says she is feeling pretty well at this time. She will be brought in to the hospitalist for observation for this vasovagal event that was multifactorial. Dr. Garcia will consult and likely see the patient not only this evening but also tomorrow morning. Patient and her voice understanding and agreement with the plan. DIAGNOSIS: ICD-10-CM 1. Vasovagal syncope R55 2. Acute blood loss anemia D62 DISPOSITION: The patient was placed on observation status. I discussed the case with the admitting hospitalist, who agrees. The patient and/or family was notified. ATTESTATION: Scribe Attestation: I, Remington Milan, am serving as a scribe to document services personally performed by Lion Pruett MD, based on my observations and the provider's statements to me. Provider Attestation: Portions of this medical record were completed by a scribe. UPON MY REVIEW AND AUTHENTICATION BY ELECTRONIC SIGNATURE, this confirms (a) I performed the applicable clinical services, and (b) the recordis accurate. Lion Pruett MD 2:57 PM 10/01/19 [facility] EMERGENCY [facility]PARTMENT ER MAN Mickey Owens MD - 10/01/2019 2:20 PM CST Referring Site: [facility] Referring Provider: Dr. Onofre, anesthesia Callback Requested: No Brief History/Relevant Results: abdominoplasty, bilateral mastopexy; severe vasovagal event in post-op, HR in 30s unmeasurable BP; recovered with a dose of ephedrine IV fluid total of 4 L crystaloid; doing better after but had a second episode, self-limited; Hgb 9.4; suspect combo of dehydration preop, blood loss, ?anesthesia effects; patient lives over an hour away and will likely need observation overnight to ensure safe dispo Expected Management: Improvement Leader Notified: No Method of arrival: Ground Mickey Owens MD ER MAN documented in this encounter Miscellaneous Notes Med Reconciliation - Charis Villarreal, Pharm D - 10/01/2019 3:41 PM [facility] MEDICATION RECONCILIATION NOTE MEDICATION RECONCILIATION on admission by pharmacy has been completed. Prior to admission medications were reviewed with patient. The RADIATION / CHEMISTRY TECHNICIAN medication list has been updated and reflected in the chart below. Please use the RADIATION / CHEMISTRY TECHNICIAN medication section for ordering home doses during admission. Medication related issues including pertinent changes made to the RADIATION / CHEMISTRY TECHNICIAN list by pharmacy: (discrepancies, interactions, additions, removal, changes & reason , duplications, compliance...) 1. Scopolamine patch was applied prior to surgery today and patient was instructed to remove it tomorrow. PRIOR TO ADMISSION MEDICATION LIST: Prior to Admission Medications Prescriptions Last Dose Informant Patient Reported? Taking? Lactobac no.41/Bifidobact no.7 (PROBIOTIC-10 ORAL) 09/30/2019 Patient Yes Yes Sig: Take 1 capsule by mouth once daily. ciprofloxacin HCl (CIPRO) 500 mg oral tablet not started Patient Yes Yes Sig: TAKE 1 TABLET BY MOUTH TWICE A DAY STARTING THE DAY AFTER SURGERY. TAKE UNTIL ALL GONE multivitamin (CERTAVITE) 18-400 mg-mcg oral tablet 09/30/2019 Patient Yes No Sig: Take 1 tablet by mouth once daily. ondansetron (ZOFRAN) 8 mg oral ODT 09/30/2019 Patient Yes Yes Sig: DISSOLVE 1 TABLET IN MOUTH EVERY 8 HOURS NEEDED FOR NAUSEA AND VOMITING oxyCODONE, immediate release, (ROXICODONE) 5 mg oral tablet Patient Yes Yes Sig: TAKE 1 TABLET BY MOUTH EVERY 4 TO 6 HOURS NEEDED FOR PAIN scopolamine 1mg/72 hours, 1.5mg, (TRANSDERM-SCOP) 1 mg over 3 days TD patch 10/01/2019 Patient Yes Yes Sig: Apply 1 patch to skin ONCE. Facility-Administered Medications: None Thank you for the opportunity to participate in the care of this patient. Charis Villarreal Pharm D Phone #:[phone] Time spent reconciling meds: 15 min ER MAN documented in this encounter Plan of Treatment Scheduled Referrals Name Type Priority Associated Diagnoses Order S chedule Follow Up Follow Up Routine Ordered: 2018 documented as of this encounter Procedures Procedure Name Priority Date/Time Associated Comments Diagnosis HEMOGLOBIN Timed Procedure 10/02/2019 7:58 Results f or AM [facility] this procedure are in the results section. HEMOGLOBIN Timed Procedure 10/01/2019 8:02 Results f or PM [facility] this procedure are in the results section. ABORH CONFIRM (LAB USE STAT 10/01/2019 6:00 Re sults for ONLY) PM [facility] this procedure are in the results section. EXTRA TUBE-COAG STAT 10/01/2019 4:48 PM [facility] EXTRA TUBE-BLOOD BANK STAT 10/01/2019 4:48 PM [facility] EXTRA TUBE-SST (LAB USE STAT 10/01/2019 4:48 ONLY) PM [facility] TYPE AND SCREEN STAT 10/01/2019 4:48 Results f or PM [facility] this procedure are in the results section. ELECTROCARDIOGRAM STAT 10/01/2019 3:56 Results for PM [facility] this procedure are in the results section. EXTRA TUBE-EDTA STAT 10/01/2019 3:24 PM [facility] CBC/DIFF STAT 10/01/2019 3:24 Results for PM [facility] this procedure are in the results section. EXTRA TUBE PST STAT 10/01/2019 3:24 PM [facility] documented in this encounter Results (ABNORMAL) Hemoglobin (10/02/2019 7:58 AM [facility])Only the most recent of2 results within the time period is included. P athologist Signature HEMOGLOBIN 8.0 (L) 12.0 - 16.0 10/02/2019 [facility] gm/dL 8:15 AM [facility] Specimen Anatomical Collection Method Collection Time Receive d Time (Source) Location / / Volume Laterality Blood 10/02/2019 7:58 AM 9 8:07 [facility] AM [facility] Miladys Thomas MD HEMATOLOGY ORDERABLE Performing Organization Address City/State/ZIP Code Phon e Number [address] [phone] LABORATORY ABORh Confirm (Lab Use Only) (10/01/2019 6:00 PM [facility]) [facility] gist Method Time Signature GROUP AND RH O Positive 10/01/2019 [facility] 6:42 PM [facility] Specimen Anatomical Collection Method Collection Time Receive d Time (Source) Location / / Volume Laterality Blood 10/01/2019 6:00 PM 9 6:08 [facility] PM [facility] Lion Pruett MD BLOOD BANK ORDERABLE Performing Organization Address City/[facility]/ZIP [facility] Phon e [place] [address] [place] [phone] LABORATORY Type & Screen (10/01/2019 4:48 PM [facility]) [facility] Method Time Signature GROUP AND RH O Positive 10/01/2019 [facility] 5:41 PM [facility] ANTIBODY Negative 10/01/2019 [facility] SCREEN 5:41 PM [facility] Specimen Anatomical Collection Method Collection Time Receive d Time (Source) Location / / Volume Laterality Blood 10/01/2019 4:48 PM 9 4:53 [facility] PM [facility] Lion Pruett MD BLOOD BANK ORDERABLE Performing Organization Address City/State/ZIP Code Phon e Number [facility] [place], [place] [address] [place] [address] LABORATORY Extra Tube-SST (Lab Use Only) (10/01/2019 4:48 PM [facility]) Specimen Anatomical Collection Method Collection Time Receive d Time (Source) Location / / Volume Laterality Blood 10/01/2019 4:48 PM 9 4:53 [facility] PM [facility] Lion Pruett MD CHEMISTRY ORDERABLE Performing Organization Address City/[facility]/ZIP Code Phon e Number [place] [address] [place] [address] LABORATORY Extra Tube-Coag (Lab Use Only) (10/01/2019 4:48 PM [facility]) Specimen Anatomical Collection Method Collection Time Receive d Time (Source) Location / / Volume Laterality Blood 10/01/2019 4:48 PM 9 4:53 [facility] PM [facility] Lion Pruett MD COAGULATION ORDERABLE Performing Organization Address City/[facility]/ZIP Code Phon e [place] [address] [place] [address] LABORATORY Extra Tube-Blood Bank (Lab Use Only) (10/01/2019 4:48 PM [facility]) Specimen Anatomical Collection Method Collection Time Receive d Time (Source) Location / / Volume Laterality Blood 10/01/2019 4:48 PM 9 4:53 [facility] PM [facility] Lion Pruett MD BLOOD BANK ORDERABLE Performing Organization Address City/[facility]/ZIP Code Ph[place] e [place] [address] [place] [address] LABORATORY EKG (10/01/2019 3:56 PM [facility]) P athologist Signature EKG [facility] EDU Comment: ?[facility] ? Test Date: ?2019-10-01 Pat Name: ? SANJANA GUZMAN ?Department: ?? ED ?Room: ? 217 Gender: ? F ?Bobbin Handler: ?? [id number] : ?1985 ? Requested By: LION PRUETT MD Order Number: [id number] ?Reading MD: ?? Lion Pruett MD ? Measurements Intervals ?Republic ? Rate: ? 71 ? P: ?55 UT: ? 168 ?QRS: ?31 QRSD: ? 85 ? T: ?30 QT: ? 374 ? QTc: ?409 ? Interpretive Statements SINUS RHYTHM NONSPECIFIC T-WAVE ABNORMALITY No previous ECG available for comparison Electronically Signed On 10-01-2019 19:0 4:11 [facility] by Lion Pruett MD Specimen (Source) Anatomical Collection Method Collection Time Re ceived Time Location / / Volume Laterality 10/01/2019 3:56 PM [facility] Narrative This result has an attachment that is no t available. Lion Pruett MD EKG ORDERABLE Performing Organization Address City/State/ZIP Code Phon e Number [facility] EDU [address] [place] [address] (ABNORMAL) CBC w/diff (10/01/2019 3:24 PM [facility]) [facility] gist Method Time Signature WBC 10.1 4.3 - 10.8 10/01/2019 [facility] K/uL 3:29 PM [facility] RBC 2.47 (L) 4.20 - 10/01/2019 [facility] 5.40 M/uL 3:29 PM [facility] HEMOGLOBIN 7.7 (L) 12.0 - 10/01/2019 [facility] 16.0 gm/dL 3:29 PM [facility] HEMATOCRIT 22.9 (L) 36.0 - 10/01/2019 [facility] 48.0 % 3:29 PM [facility] MCV 93 80 - 100 10/01/2019 [facility] fl 3:29 PM [facility] MCH 31 27 - 33 pg 10/01/2019 [facility] 3:29 PM [facility] MCHC 34 33 - 36 10/01/2019 [facility] gm/dL 3:29 PM [facility] RDW 12.3 11.5 - 10/01/2019 [facility] 14.5 % 3:29 PM [facility] PLATELET COUNT 202 150 - 400 10/01/2019 [facility] K/UL 3:29 PM [facility] MPV 10.6 6.5 - 12 10/01/2019 [facility] 3:29 PM [facility] PMN % 90.6 % 10/01/2019 [facility] 3:29 PM [facility] IG% 0.3 <=1.0 % 10/01/2019 [facility] 3:29 PM [facility] LYMPH % 3.6 % 10/01/2019 [facility] 3:29 PM [facility] MONO % 5.4 % 10/01/2019 [facility] 3:29 PM [facility] EOS % 0.0 % 10/01/2019 [facility] 3:29 PM [facility] BASO % 0.1 % 10/01/2019 [facility] 3:29 PM [facility] PMN ABSOLUTE 9.16 (H) 1.80 - 10/01/2019 [facility] 7.80 K/uL 3:29 PM [facility] IG ABSOLUTE 0.03 K/uL 10/01/2019 [facility] 3:29 PM [facility] LYMPH ABSOLUTE 0.36 (L) 1.00 - 10/01/2019 [facility] 4.00 K/uL 3:29 PM [facility] MONO ABSOLUTE 0.55 0.00 - 10/01/2019 [facility] 1.00 K/uL 3:29 PM [facility] EOS ABSOLUTE 0.00 0.00 - 10/01/2019 [facility] 0.45 K/uL 3:29 PM [facility] BASO ABSOLUTE 0.01 0.00 - 10/01/2019 [facility] 0.20 K/uL 3:29 PM [facility] NUCL RBC % 0.0 0.0 - 0.0 10/01/2019 [facility] /100 WBC 3:29 PM [facility] NUCL RBC 0.00 0.00 - 10/01/2019 [facility] ABSOLUTE 0.00 K/uL 3:29 PM [facility] Specimen Anatomical Collection Method Collection Time Receive d Time (Source) Location / / Volume Laterality Blood 10/01/2019 3:24 PM 9 3:27 [facility] PM [facility] Lion Pruett MD HEMATOLOGY ORDERABLE Performing Organization Address City/State/ZIP Code Phon e Number [facility] [address] [place] [phone] LABORATORY Extra Tube PST (Lab Use Only) (10/01/2019 3:24 PM [facility]) Specimen Anatomical Collection Method Collection Time Receive d Time (Source) Location / / Volume Laterality Blood 10/01/2019 3:24 PM 9 3:27 [facility] PM [facility] Lion Pruett MD CHEMISTRY ORDERABLE Performing Organization Address [facility]/[address] [phone] LABORATORY Extra Tube-EDTA (Lab Use Only) (10/01/2019 3:24 PM [facility]) Specimen Anatomical Collection Method Collection Time Receive d Time (Source) Location / / Volume Laterality Blood 10/01/2019 3:24 PM 9 3:27 [facility] PM [facility] Lion Purett MD HEMATOLOGY ORDERABLE Performing Organization Address [facility] e [address] [address] LABORATORY documented in this encounter Visit Diagnoses Diagnosis Vasovagal syncope - Primary Syncope and collapse Acute blood loss anemia Acute posthemorrhagic anemia documented in this encounter Admitting Diagnoses Diagnosis Vasovagal syncope Syncope and collapse documented in this encounter Administered Medications Inactive Administered Medications - up to 3 most recent administrations Medication Order MAR Action Action Date Dose Rate Site acetaminophen (TYLENOL) tablet Given 10/02/2019 12:35 PM [facility] 1,0 00 mg 1,000 mg 1,000 mg, oral, EVERY 6 HOURS NEEDED, Starting on Tue10/01/19 at 1802, Until Tue10/02/19 at 1934, fever, pain Given 10/02/2019 6:12 AM [facility] 1,000 mg Given 10/02/2019 12:33 AM [facility] 1,000 mg ciprofloxacin HCl (CIPRO) tablet 500 mg Given 10/02/2019 8:08 AM [facility] 500 mg 500 mg, oral, TWICE A DAY, First dose on Tue10/02/19 at 0800, Until Discontinued HYDROmorphone (DILAUDID) syringe 0.4 mg Given 10/02/2019 12:34 AM [facility] 0.4 mg 0.4 mg, Intravenous, EVERY 3 HOURS NEEDED, Starting on Tue10/01/19 at 2048, Until Tue10/02/19 at 1934, Pain, if oral opioid not effective or tolerated ondansetron (ZOFRAN) injection 4-8 mg Given 10/02/2019 9:43 AM [facility] 8 mg 4-8 mg, Intravenous, EVERY 6 HOURS NEEDED, Starting on Tue10/01/19 at 1802, Until Tue10/02/19 at 1934, nausea, vomiting, nausea & vomiting Given 10/01/2019 6:29 PM [facility] 4 mg oxyCODONE (immediate release) (ROXICODONE) Given 10/01/2019 3:25 PM [facility] 10 mg tablet 5-10 mg 5-10 mg, oral, ONCE, 1 dose, On Tue10/01/19 at 1515 oxyCODONE (immediate release) (ROXICODONE) Given 10/02/2019 12:3 5 PM [facility] 10 mg tablet 5-10 mg 5-10 mg, oral, EVERY 4 HOURS NEEDED, Starting on Tue10/01/19 at 1802, Until Tue10/02/19 at 1934, Pain, when taking PO Given 10/02/2019 8:07 AM [facility] 10 mg Given 10/02/2019 4:06 AM [facility] 10 mg sodium chloride 0.9 % IV BOLUS New Bag 10/02/2019 10:21 AM [facility] 1,000 mL 2000 mL/hr 1,000 mL 1,000 mL, Intravenous, ONCE, 1 dose, On Tue10/02/19 at 1015, Administer over 30 Minutes sodium chloride 0.9 % IV solution New Bag 10/02/2019 11:21 AM [facility] 100 mL/hr at 100 mL/hr, Intravenous, CONTINUOUS, Starting on Tue10/02/19 at 0145, Until Tue10/02/19 at 1144 New Bag 10/02/2019 1:58 AM [facility] 100 mL/hr documented in this encounter Active and Recently Administered Medications Times are shown in [facility]. Scheduled Medication Order 09/30/2019 10/01/2019 10/02/2019 ciprofloxacin HCl (CIPRO) tablet 500 mg 0808 (Given - Provider: Agnes Olea RN) 500 mg, oral, TWICE A DAY, First dose on Tue10/02/19 at 0800, Until Discontinued oxyCODONE (immediate release) (ROXICODONE) tablet 5-10 mg (C OMPLETED) 1525 (Given - Provider: Eros Snell, CHELE) 5-10 mg, oral, ONE TIME DOSE, 1 dose, Tue10/01/19 at 1515 sodium chloride 0.9 % IV BOLUS 1,000 mL (COMPLETED) 1021 (New Bag - Provider: Agnes Olea, RN) 1,000 mL, Intravenous, ONE TIME DOSE, 1 dose, Tue10/02/19 at 1015, Administer over 30 Minutes Continuous Medication Order 09/30/2019 10/01/2019 10/02/2019 sodium chloride 0.9 % IV solution 0158 (New Bag - Provider: Sofiya Rendon, CHELE)1121 (New Bag - Provider: Agnes Olea, RN) at 100 mL/hr, Intravenous, CONTINUOUS, S tarting Tue10/02/19 at 0145, Until Tue10/02/19 at 1144 PRN Medication Order 09/30/2019 10/01/2019 10/02/2019 acetaminophen (TYLENOL) tablet 1,000 mg 1828 (Given - Provider: Damaris Murphy RN) 0033 (Given - Provider: Sofiya parish RN)0612 (Given - Provider: Sofiya Rendon, CHELE)1235 (Given - Provider: Agnes Olea, CHELE) 1,000 mg, oral, EVERY 6 HOURS NEEDED, Starting Tue10/01/19 at 1802, Until Tue10/02/19 at 1934, Fever, Pain HYDROmorphone (DILAUDID) syringe 0.4 mg 0034 (Given - Provider: Sofiya Rendon RN) 0.4 mg, Intravenous, EVERY 3 HOURS NE EDED, Starting Tue10/01/19 at 2048, Until Tue10/02/19 at 1934, Pain, if oral opioid not effective or tolerated ondansetron (ZOFRAN) injection 4-8 mg 18 29 (Given - Provider: Damaris Lino RN) 0943 (Given - Provider: Agnes bolaños RN) 4-8 mg, Intravenous, EVERY 6 HOURS NE EDED, Starting Tue10/01/19 at 1802, Until Tue10/02/19 at 1934, nausea, Vomiting, Nausea & Vomiting oxyCODONE (immediate release) (ROXICODONE) tablet 5-10 mg 1938 (Given - Provider: Eloisa Dey, RN)2242 (Given - Provider: Eloisa Dey, RN) 0406 (Given - Provider: Sofiya Rendon, CHELE)0807 (Given - Provider: Agnes Olea, RN)1235 (Given - Provider: Agnes Olea, RN) 5-10 mg, oral, EVERY 4 HOURS NEEDED, Starting 10/01/19 at 1802, Until Tue10/02/19 at 1934, Pain, when taking PO documented in this encounter Care Teams Mc Kay Machine Operator Relationship Specialty Start Date End Date Rei Pat PCP - General Family Medicine 10/01/19 [address] [place] [address] [facility] PCP - [facility] [place] [address] [place] [address] documented as of this encounter
--- OUTSIDE RECORDS SUMMARY | 2022-09-11 10:07 | XMS_ITS | Clinical Summary ---
:1985 Author Organization [facility] Address [address] [place] [address] Care Team Providers Name Role Phone Rei Pat Talha Primary Care Provider [facility] Unavailable [phone] Allergies Active Allergy Reactions Severity Noted Date Comments Amoxicillin Rash Medium 08/23/2019 Medications Medication Sig Dispensed Refills Start Date End Date Status oxyCODONE, immediate TAKE 1 TABLET BY 0 09/18/2019 Active release, (ROXICODONE) 5 MOUTH EVERY 4 TO mg oral tablet 6 HOURS NEEDED FOR PAIN ondansetron (ZOFRAN) 8 DISSOLVE 1 TABLET 0 9 Active mg oral ODT IN MOUTH EVERY 8 HOURS NEEDED FOR NAUSEA AND VOMITING ciprofloxacin HCl TAKE 1 TABLET BY 0 09/18/2019 Active (CIPRO) 500 mg oral MOUTH TWICE A DAY tablet STARTING THE DAY AFTER SURGERY. TAKE UNTIL ALL GONE multivitamin Take 1 tablet by 0 Active (CERTAVITE) 18-400 mouth once daily. mg-mcg oral tablet Lactobac Take 1 capsule by 0 Ac tive no.41/Bifidobact no.7 mouth once daily. (PROBIOTIC-10 ORAL) scopolamine 1mg/72 Apply 1 patch to 0 Active hours, 1.5mg, skin ONCE. (TRANSDERM-SCOP) 1 mg over 3 days TD patch Active Problems Problem Noted Date Vasovagal syncope 10/01/2019 Family History Medical History Relation Comments Heart Disease Father High Blood Pressure Father Relation Status Comments Father Social History Tobacco Use Types Packs/Day Years [...] Assigned at Date Recorded Not on file Last Filed Vital Signs Vital Sign Reading Time Taken Comments Blood Pressure 104/61 10/02/2019 1:25 PM INTERMEDIATE MANAGER Pulse 83 10/02/2019 1:25 PM INTERMEDIATE MANAGER Temperature 37 ??C (98.6 ??F) 10/02/2019 1:25 PM INTERMEDIATE MANAGER Respiratory Rate 16 10/02/2019 1:25 PM INTERMEDIATE MANAGER Oxygen Saturation 99% 10/02/2019 1:25 PM INTERMEDIATE MANAGER Inhaled Oxygen Concentration - - Weight 79.5 kg (175 lb 5 oz) 10/01/2019 6:00 PM INTERMEDIATE MANAGER Height 172.1 cm (5' 7.76) 10/01/2019 6:00 PM INTERMEDIATE MANAGER Body Mass Index 26.85 10/01/2019 6:00 PM INTERMEDIATE MANAGER Plan of Treatment Health Maintenance Due Date Last Done Comments Hepatitis C Screening 1985 Pap Smear 1985 COVID-19 Vaccine (#1) 02/13/1987 Influenza Vaccine (#1) 2022 Adult Tetanus Booster 01/21/2025 01/21/2015, 01/23/2013, 06/13/2009 Pneumococcal <65 Aged Out No longer eligi ble based on patient's age to complete this topic Insurance Payer Benefit Plan / Subscriber ID Effective Dates Phone Addre ss Type Group [facility] [facility] [id number] 2015-Jarvis [id number] P[place] EMPLOYEE t 8 [id number] [place] [address] Josefina Guzman Personal/Family Self 1985 [id number] (Home) [place] [id number] Advance Directives For more information, please contact: [phone] Latest Code Status on File Code Status Date Activated Date Inactivated Comments Full Code 10/01/2019 6:02 PM 10/02/2019 7:39 PM How was code status determined? Patient Care Teams Otorhinolaryngologist Relationship Specialty Start Date End Date Rei Pat PCP - General Family Medicine 10/01/19 [address] [place] [address] [facility] PCP - Primary Care Clinic [place] [address] [place] [address]
--- OUTSIDE RECORDS SUMMARY | 2022-09-11 10:08 | XMS_ITS | Encounter Summary ---
:1985 Author Organization [facility] Address [address] [place] [address] Care Team Providers Name Role Phone Rei Pat Primary Care Provider [facility], [facility] Unavailable [phone] Reason for Visit Reason Comments Lab specimens Encounter Details Date Type Department Care Team Description 10/01/2019 Beaker Procedure [facility], Lab [facility] post [facility] - [place] (Primary Dx) [id number] [address] [address] [place] [address] Social History Tobacco Use Types Packs/Day Years [...] Not on filedocumented as of this encounter Procedures Procedure Name Priority Date/Time Associated Comments Diagnosis COMPREHENSIVE Routine 10/01/2019 1:35 PM Status post surgery R esults for this METABOLIC PANEL OP SENIOR ERP CONSULTANT procedure are in the results section. CBC Routine 10/01/2019 1:35 PM Status post surgery Re sults for this (HGB,HCT,WBC,RBC,PLATE SENIOR ERP CONSULTANT proce dure are in LET) OP the results section. documented in this encounter Results (ABNORMAL) CBC (HGB,HCT,WBC,RBC,PLATELET) OP (10/01/2019 1:35 PM SENIOR ERP CONSULTANT) Patholo gist Method Time Signature WBC OP 13.4 (H) 4.3 - 10.8 10/01/2019 [facility] K/UL 1:45 PM [facility] [place] RBC OP 3.06 (L) 4.20 - 10/01/2019 [facility] 5.40 M/UL 1:45 PM [facility] HEMO[facility] OP 9.4 (L) 12.0 - 10/01/2019 [facility] 16.0 gm/dL 1:45 PM [facility] [place] HEMATOCRIT OP 27.9 (L) 36.0 - 10/01/2019 [facility] 48.0 % 1:45 PM [facility] [place] MCV OP 91 80 - 100 10/01/2019 [facility] fl 1:45 PM [facility] [place] MCH OP 30.7 27.0 - 10/01/2019 [facility] 33.0 pg 1:45 PM [facility] [place] MCHC OP 33.7 33.0 - 10/01/2019 [facility] 36.0 gm/dL 1:45 PM [facility] [place] RDW OP 12.2 11.5 - 10/01/2019 [facility] 14.5 % 1:45 PM [facility] [place] PLATELET COUNT 252 150 - 400 10/01/2019 [facility] OP K/UL 1:45 PM [facility] [place] MPV OP 10.8 6.5 - 12.0 10/01/2019 [facility] 1:45 PM [facility] [place] Specimen Anatomical Collection Method / Collection Time Recei errol Time (Source) Location / Volume Laterality Blood Venipuncture / 10/01/2019 1:35 10/01/2019 1:35 Unknown PM SENIOR ERP CONSULTANT PM SENIOR ERP CONSULTANT Jalen Garcia MD HEMATOLOGY ORDERABLE Performing Organization Address City/State/ZIP Code Phon e Number [facility] [id number] [facility] [place] [place] [address] [place] (ABNORMAL) COMPREHENSIVE METABOLIC PANEL OP (10/01/2019 1:35 PM SENIOR ERP CONSULTANT) Analysis Performed At Patho logist Time Signature SODIUM OP 137 136 - 145 10/01/2019 [facility] mmol/L 1:50 PM [facility] [place] POTASSIUM OP 3.6 3.5 - 5.1 10/01/2019 [facility] mmol/L 1:50 PM SENIOR ERP CONSULTANT [facility] [place] CHLORIDE OP 105 98 - 107 10/01/2019 [facility] mmol/L 1:50 PM SENIOR ERP CONSULTANT [facility] [place] CARBON DIOXIDE 24 21 - 32 10/01/2019 [facility] OP mmol/L 1:50 PM SENIOR ERP CONSULTANT [facility] [place] BUN (UREA 9 7 - 18 10/01/2019 [facility] NITRO) OP mg/dL 1:50 PM SENIOR ERP CONSULTANT [facility] [place] CREATININE OP 0.74 0.60 - 10/01/2019 [facility] 1.00 mg/dL 1:50 PM SENIOR ERP CONSULTANT [facility] [place] EST GFR >60 >60 mL/min 10/01/2019 [facility] (CKD-EPI) OP 1:50 PM SENIOR ERP CONSULTANT [facility] EST GFR IF >60 >60 mL/min 10/01/2019 [facility] AM OP 1:50 PM SENIOR ERP CONSULTANT [facility] [place] GLUCOSE OP 188 (H) 70 - 110 10/01/2019 [facility] mg/dL 1:50 PM SENIOR ERP CONSULTANT [facility] [place] CALCIUM, SERUM 7.8 (L) 8.5 - 10.1 10/01/2019 [facility] L OP mg/dL 1:50 PM SENIOR ERP CONSULTANT [facility] [place] ANION GAP OP 8.0 0.0 - 15.0 10/01/2019 [facility] mmol/L 1:50 PM [facility] [place] ALBUMIN OP 2.8 (L) 3.4 - 5.0 10/01/2019 [facility] g/dL 1:50 PM SENIOR ERP CONSULTANT [facility] [place] BILIRUBIN-TOTAL 0.5 0.2 - 1.0 10/01/2019 [facility] L OP mg/dL 1:50 PM SENIOR ERP CONSULTANT [facility] [place] ALKALINE P'TASE 59 45 - 117 10/01/2019 [facility] L OP IU/L 1:50 PM SENIOR ERP CONSULTANT [facility] [place] PROTEIN TOTAL 5.0 (L) 6.4 - 8.2 10/01/2019 [facility] OP g/dL 1:50 PM SENIOR ERP CONSULTANT [facility] [place] AST (SGOT) OP 21 15 - 37 10/01/2019 [facility] IU/L 1:50 PM SENIOR ERP CONSULTANT [facility] [place] ALT (SGPT) OP 32 12 - 68 10/01/2019 [facility] IU/L 1:50 PM SENIOR ERP CONSULTANT [facility] [place] Specimen Anatomical Collection Method / Collection Time Recei errol Time (Source) Location / Volume Laterality Blood Venipuncture / 10/01/2019 1:35 10/01/2019 1:35 Unknown PM SENIOR ERP CONSULTANT PM SENIOR ERP CONSULTANT Jalen Garcia MD CHEMISTRY ORDERABLE Performing Organization Address City/State/ZIP Code Phon e Number [facility] [id number] [facility] [place] [address] [place] [address] [place] documented in this encounter Visit Diagnoses Diagnosis Status post surgery - Primary documented in this encounter Care Teams Career Technical Supervisor Relationship Specialty Start Date End Date Rei Pat PCP - General Family Medicine 10/01/19 [address] [place] [address] [facility] PCP - Primary Care Clinic [place] [address] [place] [address] documented as of this encounter
--- OUTSIDE RECORDS SUMMARY | 2022-09-11 10:08 | XMS_ITS | Clinical Summary ---
:1985 Author Organization [facility] Address [place] [address] Care Team Providers Name Role Phone Rei aPt MD Primary Care Provider Allergies Active Allergy Reactions Severity Noted Date Comments Amoxicillin Hives 08/09/2006 Medications No known medications Active Problems Problem Noted Date Polyhydramnios in third trimester 04/10/2015 Supervision of other normal 2014 Anemia, unspecified 01/23/2013 LGSIL (low grade squamous intraepithelial lesion) on P ap smear 03/08/2012 Other acne 10/10/2006 Acute tonsillitis 05/10/2006 Overview: multiple episods PALPITATIONS 11/16/2005 IMPINGEMENT SYNDROME 07/30/2005 SHOULDER SPRAIN 06/09/2005 WARTS 04/13/2005 Blood type, Rh positive Overview: O positive Resolved Problems Problem Noted Date Resolved Date care, subsequent 09/18/2012 07/0 01/2013 Overview: Elevated BP near the end of first pregna ncy GBS negative Encounters Date Type Specialty Care Team Description 09/11/2022 Travel 09/11/2022 Nurse Triage Rei Pat MD Leg Pain/problem from Last 3 Months Immunizations Name Administration Dates Next Due Influenza, IIV3 (Age >=3 years) 08/14/2013, 08/08/2012 Influenza, IIV4 09/04/2015, 2014 MMR 11/23/2013 Tdap 01/21/2015, 01/23/2013, 06/13/2009 Family History Medical History Relation Name Comments Diabetes type II Father Heart Disease Father Hypertension Father Other cancer Father bladder Cancer-breast Maternal Aunt 1 Cancer-breast Maternal Aunt 2 Other Mother non-cancer remov ed from breast Genetic Other Family history o f:~~Breast Cancer: Pat aunt~~Ovarian Ca ncer: No~~Colon CA: No~~Prostate/Xiao ticular CA: No~~Osteoporosis: No~~Early CAD: N o~~DM: PAt. gma, uncle~~Thyroid Dz: No Relation Name Status Comments Brother Alive Father Alive Maternal Aunt 1 Maternal Aunt 2 Maternal Grandfather Alive Maternal Grandmother Alive Mother Alive Other Paternal Grandfather (Age ?) cancer Paternal Grandmother (Age ?) cancer Sister Alive Son Alive Baudilio Social History Tobacco Use Types Packs/Day Years Used Date Never Smoker Smokeless Tobacco: Never Used Tobacco Cessation: Counseling Given: Yes Alcohol Use Standard Drinks/Week Comments No 0 (1 standard drink = 0.6 oz pure alcoho l) occ Alcohol Habits Answer Date Recorded How often do you have a drink containing alcohol? Not asked How many drinks containing alcohol do you have on a typical Not asked day when you are drinking? How often do you have six or more drinks on one occasion? No t asked Comment: occ 05/27/2021 Sex Assigned at Date Recorded Female 05/26/2021 9:16 PM CDT COVID-19 Exposure Response Date Recorded In the last 10 days, have you been in contact with No / Unsu re 09/11/2022 7:32 AM CDT someone who was confirmed or suspected to have Coronavirus/COVID-19? Obstetrics History Para Term AB IAB SAB Ectopic Multiple Living Live Births 4 2 2 0 1 0 1 0 0 2 1 Date Outcome GA Total Labor/2nd/3rd Weight Sex Delivery Anes PTL Olrna A 1 A5 Name Clin Labor SAB 06/11 Term 40w 90h 00m/ 3.78 kg M Vag [place]is Pr est [place] 0d (8 lb ng on r 5.5 oz) 04/11 Term 40w 10h 00m/ 3.8 kg M Vag Emerson my 0d (8 lb 6 oz) Comments: System Generated. Please review and update details. Last Filed Vital Signs Vital Sign Reading Time Taken Comments Blood Pressure 127/88 11/17/2021 8:37 AM CARTOGRAPHIC DRAFTER Pulse 82 11/17/2021 8:37 AM CARTOGRAPHIC DRAFTER Temperature 36.6 ??C (97.9 ??F) 11/17/2021 8:37 AM CARTOGRAPHIC DRAFTER Respiratory Rate 16 05/09/2018 1:18 PM CDT Oxygen Saturation 97% 11/17/2021 8:37 AM CARTOGRAPHIC DRAFTER Inhaled Oxygen Concentration - - Weight 91.4 kg (201 lb 6.4 oz) 05/27/2021 10:51 AM CDT Height 172 cm (5' 7.72) 05/27/2021 10:51 AM CDT Body Mass Index 30.88 05/27/2021 10:51 AM CDT Plan of Treatment Health Maintenance Due Date Last Done Comments Hepatitis C screening for age 1008/15/2004 18-79 COVID-19 vaccine series (2 - 04/10/2021 02/13/2021 Booster for Christelle series) BMI (ht and wt on same day) for 05/27/2022 05/27/2021, 08/0 03/2020, age 18+ 10/04/2019, Additional history exists Depression screening for age 12+ 05/27/2022 05/27/2021, 02/2019, 04/13/2018, Additional history exists Influenza for age 9-49 07/15/2022 09/04/2015, 2014, 08/14/2013, Additional history exists Tetanus booster 01/21/2025 01/21/2015, 01/23/2013, 06/13/2009 Pap test for age 21-65 05/27/2026 05/27/2021, 05/27/2021, 06/10/2015, Additional history exists Tdap Completed 01/21/2015, 01/23/2013, 06/13/2009 Results Not on filefrom Last 3 Months Insurance Payer Benefit Plan / Subscriber ID Effective Dates Phone Addre ss Type Group [employer] [place] [id number] 2015-Present [address] [address] [place] [address] [employer] Employer 11/14/2000 [employer] (Work) MEDICINE [id number] [place] [address] Advance Directives Latest Code Status on File Code Status Date Activated Date Inactivated Comments Full Code 06/11/2009 1:33 AM 06/13/2009 4:30 PM Full Code 06/09/2009 3:58 AM 06/09/2009 1:58 PM Full Code 06/08/2009 8:55 AM 06/08/2009 2:39 PM Full Code 03/04/2009 6:41 PM 03/04/2009 9:46 PM Care Teams Watershed Engineer Relationship Specialty Start Date End Date Rei Pat MD PCP - General Family Practice 04/20/17 [address] [place] [address]
--- OUTSIDE RECORDS SUMMARY | 2022-09-11 10:08 | XMS_ITS | Encounter Summary ---
:1985 Author Organization [facility] Address [address] [place] [id number] Care Team Providers Name Role Phone Rei Pat Talha Primary Care Provider [facility] Unavailable [phone] Encounter Details Date Type Department Care Team Description 10/01/2019 Hospital Encounter [facility] [address] [place], [place] [id number] [phone] Social History Tobacco Use Types Packs/Day Years [...] Sign Reading Time Taken Comments Blood Pressure 118/63 10/01/2019 1:45 PM PHYSICIAN/INTERNIST Pulse 73 10/01/2019 1:45 PM PHYSICIAN/INTERNIST Temperature 36.1 ??C (97 ??F) 10/01/2019 1:05 PM PHYSICIAN/INTERNIST Respiratory Rate 16 10/01/2019 1:45 PM PHYSICIAN/INTERNIST Oxygen Saturation 99% 10/01/2019 1:45 PM PHYSICIAN/INTERNIST Inhaled Oxygen Concentration - - Weight 79.5 kg (175 lb 5 oz) 09/25/2019 2:21 PM PHYSICIAN/INTERNIST Height 172.1 cm (5' 7.75) 09/25/2019 2:21 PM PHYSICIAN/INTERNIST Body Mass Index 26.85 09/25/2019 2:21 PM PHYSICIAN/INTERNIST documented in this encounter Discharge Instructions Discharge InstructionsYulisa Gonzalez RN - 10/01/2019 6:47 AM CST Johnny Salmon Drain Information What is a Johnny Salmon Drain? A Johnny Salmon drain (also called a MISSY drain) is a type of surgical drain that consists of tubing that is placed in the incision during surgery and is attached to a softsqueezable bulb that provides suction that will help remove blood or fluids that may collect at the surgical site. The drain usually remains in place at least 24 hours, and sometimes for several weeks,depending on your surgical procedure and your doctor???s orders. It is taken out by the surgeon at your follow up visit. When do I empty the MISSY drain? The first 24 hours, check the drain and bulb at least every 4 hours. Empty the bulb if it is half full of fluid. Do not let the bulb fill more than half full. After the first day, you should be able to empty the bulb when it fills half way..or at least every 8 hours, evenwhen it is not half full. How do I empty the MISSY drain? 1) Wash your hands before handling the drainage bulb or tubing. 2) Place a waterproof pad or towel under the MISSY drain to catch any spills. 3) Hold the bulb lower than where it enters your body???to prevent the drainage fluid from going back into your body. 4) Remove the stopper from the bulb spout/drain opening. 5) Pour the drainage fluid into the measuring container that was sent home with you. 6) Be careful not to touch the spout to the opening of the collection container or to anything else. (this keeps germs from getting inside the bulb and tubing.) 7) Measure the amount of fluid that came out of the MISSY drain. There should be markings on the side of the container that was sent home with you. Write down the date, time, amount and color of the fluidon the MISSY drainage chart or notebook/piece of paper. Keep track of this information and take it withyou to your follow up appointment. 8) Once the bulb is empty, squeeze the bulb???while squeezing the bulb, replace the stopper. The compressed bulb is what creates suction to drain the fluid from the incision. If you cannot squeeze the bulb and replace the stopper in the spout by yourself, ask someone for help. 9) Do not ever squeeze the bulb while the stopper is in place, as that will force air or drainage back into the incision. 10) Flush the drain fluid down the toilet. 11) Wash your hands thoroughly with soap and water when you are finished. What can I do to prevent problems with my MISSY drain? Always keep the drain lower than your incision. This prevents fluid from going back into your body. Do not pull on the tubing. This can loosen the stitches holding the drain in place, causing the drain to fall out. When should I call my doctor? 1) If you have chills or a fever over 101 degrees. 2) If you have increasing pain in the area of the drain, or notice any redness, swelling, drainage or tenderness around the drain site 3) If the fluid removed from the drain is cloudy yellow or foul smelling 4) If you see any holes or cracks in the bulb or drain tubing 5) If you have any other questions or concerns Otherwise, be sure to keep your follow up appointment with your doctor and follow all other instructions reviewed with you during your stay with us and provided in your yellow discharge teaching folder. Patient Name Location of Drain Date: Date: Time Amount Time Amount Time Amount Time Amount Time Amount Time Amount Time Amount Time Amount Time Amount Time Amount Time Amount Time Amount Date: Date: Time Amount Time Amount Time Amount Time Amount Time Amount Time Amount Time Amount Time Amount Time Amount Time Amount Time Amount Time Amount Date: Date: Time Amount Time Amount Time Amount Time Amount Time Amount Time Amount Time Amount Time Amount Time Amount Time Amount Time Amount Time Amount Date: Date: Time Amount Time Amount Time Amount Time Amount Time Amount Time Amount Time Amount Time Amount Time Amount Time Amount Time Amount Time Amount PLEASE TAKE THIS FORM TO YOUR SURGEON AT YOUR FOLLOW-UP APPOINTMENT! You have a Scopolamine patch placed behind your ear. It is used to help prevent nausea and vomiting. ?? Do not drink alcohol or drive a vehicle while using this medication. Tell your physician if you are or nursing. Inform your physician of any allergies, current medications, and any current ongoing conditions. DO NOT touch your eyes after touching this medication and wash your hands thoroughly after handling. ?? Side effects: May include blurred vision, dry mouth, rash, dilated pupils and drowsiness. These feelings may alleviate if you lie down. If these feelings become bothersome you may remove the patch. If you have sudden eye pain, severe dizziness or rapid heart rate, remove the patch immediately and contact your physician. ?? Please remove your patch the day after surgery. ICIAN/INTERNIST documented in this encounter Medications at Time [...] 6 oral tablet HOURS NEEDED FOR PAIN documented as of this encounter Progress Notes Jalen Garcia MD - 10/01/2019 2:26 PM CST Pt with abdominoplasty and bilateral mastopexy today at [facility]. Complicated by syncopal episode and hgb to 9.0 and subsequent 7.7 in ER. Seen in ER comfortable alert , w/o distress. Bp; 110/70, P 80 comfortable. Breasts: soft symmetrical w/o hematoma. Abdomen; soft w/o localized hematoma. Moderate serosanguinous output MISSY. No ecchymosis of significance. Diffusely modest swelling. Assessment; Post operative hgb drop with probable cessation active bleeding. Has diffused into largeoperative subcutaneous space. Follow hgb and transfuse if symptomatic requires. Will see in am toevaluate. ICIAN/INTERNIST Jalen Garcia MD - 10/01/2019 2:26 PM CST Reasonably comfortable, no nausea, pain now controlled. BP 90/60, P80, Sats 98% Missy output thin serosanguinous Breasts: no complications, all wds ok , tissue pink, no hematoma Abdomen: mild swelling as expected, all skin w/o problems Hgb 9.0 Assess; psot operative anemia, no on going loss. Would advance activity to ambulation, reg diet and discharge home when stable. Pt motivated, has all meds at home for post op care. Will add iron supplement. ICIAN/INTERNIST documented in this encounter H&P Notes Supa Onofre MD - 10/01/2019 6:42 AM CST History and Physical Update I have reviewed the patient's History and Physical and have examined the patient in the pre-op area.The patient denies any interval changes in medical condition since the H&P. Patient is cleared for surgery in an ambulatory setting. Supa Onofre MD 10/01/2019 6:42 AM ICIAN/INTERNIST Source Note - Inf, Process Stripper - 09/18/2019 9:15 AM PHYSICIAN/INTERNIST documented in this encounter Nursing Notes Inna Siegel RN - 10/01/2019 2:22 PM CST Josefina Guzman 1985 [id number] Discharged via cart to [facility] at 1423 escorted by ambulance personnel Discharge information and arrangements included: yes. Patient, spouse went to the hospital. ICIAN/INTERNIST Inna Siegel RN - 10/01/2019 11:36 AM CST Pt has vasal vagal episode after trying to get up to a seated position. Pulse in the 30's / no B/P/.MDA gave ephedrine IV. VS returning to baseline. Pt woke up, stabalized. ICIAN/INTERNIST documented in this encounter OR Notes OR Surgeon - Jalen Garcia MD - 10/01/2019 2:26 PM CST DATE OF PROCEDURE: October 01, 2019. PREOPERATIVE DIAGNOSIS: Abdominal laxity, breast ptosis. POSTOPERATIVE DIAGNOSIS: Abdominal laxity, breast ptosis. OPERATIVE PROCEDURE: Abdominoplasty, bilateral mastopexy. SURGEON: Jalen Garcia MD, PA ANESTHESIA: General with tracheal tube 0.25% Marcaine with EXPAREL. INDICATION OF PROCEDURE: This patient desired to have bilateral mastopexy. She will undergo abdominoplasty. The risks and benefits were discussed, she wished to proceed. OPERATIVE PROCEDURE: After satisfactory anesthesia, the patient's torso was prepped and draped from the inframammary fold distally. Rai solution was instilled in the flank and hip roll areas as well as the low abdomen. The patient was on liposuction using 4 and 5-mm cannula approximately 3000 cc lipo matous material. The patient was turned to lateral decubitus position and supine. Once supine, KESHAV, Scruggs, and pneumo boots were applied. The incision was then opened. The skin fat layer elevated off the abdominal fascia in the discontinuous fashion to the epigastric. The linea alba was decussate and r epaired in layers with the #1 Vicryl. The patient's fascia was injected with 0.25% Marcaine as well as EXPAREL. . The patient was flexed and the excess skin trimmed. Inset with 2-0 Monocryl subcutaneous, 4-0 Monocryl subcuticular, and #1 StrataFix deep subcutaneous fashion. The umbilicus was brought an umbilical incision in the midline, inset with 4-0 Monocryl. Sterile tape, Kerlix, Topifoam, abdominal binder was placed. The chest was prepped and draped. In each side, a Cruz pattern mastopexy was deepithelialized preserving 42-mm nipple-areolar complex. Upper medial and lateral flaps are elevated and contoured with electrocautery and did good hemostasis. The flaps were closed with 2-0 and 4-0 Monocryl. At 6.5 cm on the vertical axis by compass technique, healthy areola complex was then re-inset with 4-0 and 5-0 Monocryl. A 0.25% Marcaine was injected. Tape, Kerlix rolls, and Eric were applied. The patient tolerated this well. Sponge count correct x2. Jalen Garcia MD, PA /lbm ICIAN/INTERNIST OR Anesthesia - Supa Onofre MD - 10/01/2019 2:23 PM CST Pt had 2 vasovagal episodes with significant hemodynamic instability with minimal awareness associated with episode. Minimally palpable pulse and difficult to transiently obtain BPs. Treated with IVF and 15 mg ephedrine. Patient did resume HD stability after a while. H/O motion sickness and PONV. Had minimal blood loss. Had low UO intraop. Postop Hgb 9.4. Decided to transfer to [facility] after discussion with Dr Garcia. fully understands, along withthe patient, who are in agreement to transfer. Discussed case with Dr Canela in the ER. He accepted the pt for ER arrival. Electronically signed, Supa Onofre MD ICIAN/INTERNIST OR Surgeon - Jalen Garcia MD - 10/01/2019 6:49 AM CST Pre op; abdom laxity, breast ptosis Post op; same Procedure; Abdominoplasty, bilat mastopexy Surgeon; MARIA C Marinelli Anesth; GOT, .25% marcaine, Exparel Drains; 1 missy ICIAN/INTERNIST documented in this encounter Plan of Treatment Scheduled Orders Name Type Priority Associated Diagnoses Order S chedule CBC Lab STAT STAT for 1 Occu rrences (HGB,HCT,WBC,RBC,Plate start ing 10/01/2019 until let) 10/01/2019 documented as of this encounter Procedures Procedure Name Priority Date/Time Associated Comments Diagnosis ABDOMINOPLASTY 10/01/2019 7:00 AM Cosmetic PHYSICIAN/INTERNIST MASTOPEXY 10/01/2019 7:00 AM Cosmetic PHYSICIAN/INTERNIST UPT ([facility] [place]) Routine 10/01/2019 6:10 AM Results for this PHYSICIAN/INTERNIST procedure are i n the results section. documented in this encounter Results CBC (HGB,HCT,WBC,RBC,Platelet) (10/01/2019 1:28 PM PHYSICIAN/INTERNIST) Specimen (Source) Anatomical Location Collection Method / Collectio n Time Received Time / Laterality Volume Blood Jalen Garcia MD HEMATOLOGY ORDERABLE Test - UPT ([facility] [place]) (10/01/2019 6:10 AM PHYSICIAN/INTERNIST) P athologist Signature UPT ([facility]) Specimen (Source) Anatomical Collection Method Collection Time Re ceived Time Location / / Volume Laterality Urine 10/01/2019 6:10 AM PHYSICIAN/INTERNIST Supa Caldwell MD URINE ORDERABLE documented in this encounter Visit Diagnoses Not on filedocumented in this encounter Administered Medications Inactive Administered Medications - up to 3 most recent administrations Medication Order MAR Action Action Date Dose Rate Site atropine syringe 0.4 mg 0.4 mg, Intravenous, NEEDED, 1 dose, Starting on Tue10/01/19 at 1010, Until Tue10/01/19 at 1453, Phase 1/2, bradycardia, for HR <50, with hypotension, give atropine 0.4mg IV. Notify anesthesiologist. dexamethasone (DECADRON) injection 4 mg 4 mg, Intravenous, ONCE NEEDED, 1 dos e, Starting on Tue10/01/19 at 1011, Until Tue10/01/19 at 1453, Phase 1/2, for allergic reaction diphenhydrAMINE (BENADRYL) injection 25 mg 25 mg, Intravenous, ONCE NEEDED, 1 do se, Starting on Tue10/01/19 at 1011, Until Tue10/01/19 at 1453, Phase 1/2, for allergic reaction fentaNYL (SUBLIMAZE) injection 25-50 mcg Given 10/01/2019 11:08 AM PHYSICIAN/INTERNIST 50 mcg 25-50 mcg, Intravenous, EVERY 5 MINUTES NEEDED, 18 doses, Starting on Tue10/01/19 at 1010, Until Tue10/01/19 at 1453, Phase 1/2, for acute surgical pain Given 10/01/2019 10:45 AM PHYSICIAN/INTERNIST 50 mcg HYDROmorphone (DILAUDID) syringe 0.2 mg 0.2 mg, Intravenous, EVERY 5 MINUTES NEEDED, 2 doses, Starting on Tue10/01/19 at 1010, Until Tue10/01/19 at 1453, Phase 1/2, Pain, when NOT taking PO hydrOXYzine pamoate (VISTARIL) capsule 25-50 Given 11:13 AM PHYSICIAN/INTERNIST 50 mg mg 25-50 mg, oral, NEEDED, Starting on Tue10/01/19 at 1010, Until Tue10/01/19 at 1453, Phase 1/2, for pain or nausea Intravenous Infuse IV fluids as ordered by surgeon, otherwise cont inue OR infusion @ 75-100 mL/hr until discontinued., Phase 1/2 labetalol (NORMODYNE;TRANDATE) injection 10 mg 10 mg, Intravenous, ONCE NEEDED, 1 do se, Starting on Tue10/01/19 at 1010, Until Tue10/01/19 at 1453, Phase 1/2, SBP>160 and HR>60, after adequate pain control. lactated Ringers (LR) IV infusion at 25 mL/hr, Intravenous, CONTINUOUS PRN , Starting on Tue10/01/19 at 0604, Until Tue10/01/19 at 1453 lidocaine 1% / 8.4% sod bicarb (buffered lidocaine) syringe for IV starts 0.1-0.3 mL 0.1-0.3 mL, Intradermal, NEEDED, Starting on Tue at 0604, Until Tue10/01/19 at 1453, IV line placement, IV start or resta rt lidocaine 1% injection (conc: 10 mg/mL) 8 mL 8 mL (rounded from 7.95 mL = 1 mg/kg ? 79.5 kg), Intravenous, ONCE NEEDED, 1 dose, Starting on Tue10/01/19 at 1010, Until Tue10/01/19 at 1453, Phase 1/2, Local Anesthesi a, for severe coughing or stridor ( laryngospasm ) meperidine (preservative free) (DEMEROL) syringe 12.5 mg 12.5 mg, Intravenous, EVERY 5 MINUTES NEEDED, 2 doses, Starting on Tue10/01/19 at 1010, Until Tue10/01/19 at 1453, Phase 1/2, for sh ivering, Do not user meperidine for pain control per recommendation of the [place] [employer], [place] for Safe Medication Practices (ISMP) and the [facility]. ondansetron (ZOFRAN) injection 4 mg 4 mg, Intravenous, ONCE NEEDED, 2 dos es, Starting on Tue10/01/19 at 1011, Until Tue10/01/19 at 1453, Phase 1/2, nausea & vomiting saline with benzyl alcohol injection 0.1 -0.3 mL 0.1-0.3 mL, Intradermal, NEEDED, Starting on Tue at 0604, Until Tue10/01/19 at 1453, IV start or restart scopolamine 1mg/72 hours Patch Applied 10/01/2019 6:40 AM 1 patch Right Post (1.5mg) (TRANSDERM-SCOP) PHYSICIAN/INTERNIST Auricular patch 1 patch 1 patch, Transdermal, ONCE, 1 dose, On Tue10/01/19 at 0645 scopolamine 1mg/72 hours (1.5mg) (TRANSD ERM-SCOP) patch 1 patch 1 patch, Transdermal, ONCE NEEDED, 1 dose, Starting on Tue10/01/19 at 1011, Until Tue10/01/19 at 1453, Phase 1/2, for nausea. Rem ove in 24 hours. documented in this encounter Active and Recently Administered Medications Times are shown in PHYSICIAN/INTERNIST. Scheduled Medication Order 09/29/2019 09/30/2019 10/01/2019 clindamycin ( CLEOCIN ) 900 mg IV piggyback (COMPLETED) 0658 (Given - Provider: Pam Avila) 900 mg, Intravenous, ONE TIME DOSE, 1 do se, Tue10/01/19 at 0615, Administer over 30 Minutes Intravenous Infuse IV fluids as ordered by surgeon, otherwise continue OR infusion @ 75-100 mL/hr until discontinued., PACU scopolamine 1mg/72 hours (1.5mg) (TRANSDERM-SCOP) patch 1 patch 0640 (Patch Applied - Provider: Yulisa Gonzalez RN) 1 patch, Transdermal, ONE TIME DOSE, 1 dose, Tue10/01/19 at 064 5 PRN Medication Order 09/29/2019 09/30/2019 10/01/2019 atropine syringe 0.4 mg 0.4 mg, Intravenous, NEEDED, 1 dose, Starting Tue10/01/19 at 1010, Until Tue10/01/19 at 1453, PACU, Bradycardia, for HR <50, with hypotension, give atropine 0.4mg IV. Notify anesthesiologist. bupivacaine 0.25% (MARCAINE) injection (CANCELED) 0802 (Given - Provider: Jalen Garcia MD) INTRA-PROCEDURE NEEDED, Starting Tue10/01/19 at 0802, Until Tue10/01/19 at 1030, Intra-Op bupivacaine 0.25%-EPINEPHrine 1:200,000 (PF) (SENSORCA INE) injection (CANCELED) 1010 (Given - Provider: Jewel Garcia MD - Comment: BREASTS) INTRA-PROCEDURE NEEDED, Starting Tue10/01/19 at 1010, Until Tue10/01/19 at 1030, Intra-Op bupivacaine liposome (PF) (EXPAREL) injection (COMPLETED) 0804 (New Bag - Provider: Jalen Garcia MD - Comment: 20ml Exparel diluted in 30ml 0.9% Nacl. All 50mlwere injected into abdomen) CONTINUOUS PRN, Starting Tue10/01/19 at 0804, Until Tue10/01/19 at 0804, Intra-Op dexamethasone (DECADRON) injection 4 mg(Linked Group 1) 4 mg, Intravenous, ONE TIME DOSE NEED ED, 1 dose, Starting 10/01/19 at 1011, Until Tue10/01/19 at 1453, PACU, for allergic reaction diphenhydrAMINE (BENADRYL) injection 25 mg(Linked Group 1) 25 mg, Intravenous, ONE TIME DOSE NEE DED, 1 dose, Starting Tue10/01/19 at 1011, Until Tue10/01/19 at 1453, PACU, for allergic reaction EPINEPHrine (ADRENALIN) injection (CANCELED) 0718 (Given - Provider: Jalen Garcia MD - Comment: mixed in 1000ml 0.9% Nacl used for tumescent) INTRA-PROCEDURE NEEDED, Starting Tue10/01/19 at 0718, Until Tue10/01/19 at 1030, Intra-Op fentaNYL (SUBLIMAZE) injection 25-50 mcg 1045 (Given - Provider: Inna Siegel RN)1108 (Given - Provider: Inna Siegel RN) 25-50 mcg, Intravenous, EVERY 5 MINUTES NEEDED, 18 doses, Starting Tue10/01/19 at 1010, Until 10/01/19 at 1453, PACU, for acute surgical pain HYDROmorphone (DILAUDID) syringe 0.2 mg 0.2 mg, Intravenous, EVERY 5 MINUTES NEEDED, 2 doses, Starting Tue10/01/19 at 1010, Until 10/01/19 at 1453, PACU, Pain, when NOT taking PO hydrOXYzine pamoate (VISTARIL) capsule 25-50 mg 1113 (Given - Provider: Inna Siegel RN) 25-50 mg, oral, NEEDED, Starting Tue10/01/19 at 1010, Until 10/01/19 at 1453, PACU, for pain or nausea labetalol (NORMODYNE;TRANDATE) injection 10 mg 10 mg, Intravenous, ONE TIME DOSE NEE DED, 1 dose, Starting Tue10/01/19 at 1010, Until Tue10/01/19 at 1453, PACU, SBP>160 and HR>60, after adequate pain control. lactated Ringers (LR) IV infusion at 25 mL/hr, Intravenous, CONTINUOUS PRN , Starting Tue10/01/19 at 0604, Until Tue10/01/19 at 1453 lidocaine 1% / 8.4% sod bicarb (buffered lidocaine) syringe for IV starts 0.1- 0.3 mL 0.1-0.3 mL, Intradermal, NEEDED, Star ting Tue10/01/19 at 0604, Until Tue10/01/19 at 1453, IV line placement, IV start or restart lidocaine 1% injection (conc: 10 mg/mL) 8 mL 8 mL (rounded from 7.95 mL = 1 mg/kg ? 79.5 kg), Intravenous, ONE TIME DOSE NEEDED, 1 dose, Starting Tue10/01/19 at 1010, Until Tue10/01/19 at 1453, PACU, Local Anesthesia, for severe coughing or stridor ( laryngospasm ) meperidine (preservative free) (DEMEROL) syringe 12.5 mg 12.5 mg, Intravenous, EVERY 5 MINUTES NEEDED, 2 doses, Starting Tue10/01/19 at 1010, Until Tue10/01/19 at 1453, PACU, for shivering, Do not user meperidine for pain control per recommendation of th e [employer], [place] for S afe Medication Practices (ISMP) and the [facility]. ondansetron (ZOFRAN) injection 4 mg 4 mg, Intravenous, ONE TIME DOSE NEED ED, 2 doses, Starting Tue10/01/19 at 1011, Until Tue10/01/19 at 1453, PACU, Nausea & Vomiting saline with benzyl alcohol injection 0.1-0.3 mL 0.1-0.3 mL, Intradermal, NEEDED, Star ting Tue10/01/19 at 0604, Until Tue10/01/19 at 1453, IV start or restart scopolamine 1mg/72 hours (1.5mg) (TRANSDERM-SCOP) patch 1 patch 1 patch, Transdermal, ONE TIME DOSE N EEDED, 1 dose, Starting Tue10/01/19 at 1011, Until 10/01/19 at 1453, PACU, for nausea. Remove in 24 hours. Linked Groups Order Group 1: diphenhydrAMINE (BENADRYL) injection 25 mgJump to med 25 mg, Intravenous, ONE TIME DOSE NEE DED, 1 dose, Starting 10/01/19 at 1011, Until 10/01/19 at 1453, PACU, for allergic reaction And dexamethasone (DECADRON) injection 4 mgJump to med 4 mg, Intravenous, ONE TIME DOSE NEED ED, 1 dose, Starting Tue10/01/19 at 1011, Until 10/01/19 at 1453, PACU, for allergic reaction documented in this encounter Care Teams Manufacturing Technician Relationship Specialty Start Date End Date Rei Pat PCP - General Family Medicine 10/01/19 [address] [place] [address] [facility] PCP - [facility] [place] [address] [place] [id number] documented as of this encounter
--- OUTSIDE RECORDS SUMMARY | 2022-09-11 10:08 | XMS_ITS | Encounter Summary ---
:1985 Author Organization [facility] Address [address] [place] [address] Care Team Providers Name Role Phone Rei Pat Primary Care Provider [facility], [facility] Unavailable [phone] Encounter Details Date Type Department Care Team Description 10/01/2019 Surgery [facility] Jalen Garcia , BILATERAL MASTOPEXY [facility] [id number] [place] [address] Dr Zaidi [address] [place] [address] [place] [address] (Wo rk) Surgery Details Date/Time Status Location OR Service Patient Case Case Traum a Class Class Type Case? 10/01/19 7:00 Posted [facility] ORS OR 01 Plastic Same Day AM Surgery Panel 1 Procedure LRB Anes Op Region Wound Class Commen ts BILATERAL MASTOPEXY Bilateral General Breast Clean (I) ABDOMINOPLASTY N/A General Abdomen Clean (I) Surgeon Surgeon Role Service Panel Jalen Garcia MD Primary Plastic 1 documented in this encounter Social History Tobacco Use Types Packs/Day Years [...] Sign Reading Time Taken Comments Blood Pressure 103/58 10/01/2019 11:15 AM WOUND/OSTOMY NURSE Pulse 69 10/01/2019 11:15 AM WOUND/OSTOMY NURSE Temperature 36.1 ??C (97 ??F) 10/01/2019 11:00 AM WOUND/OSTOMY NURSE Respiratory Rate 16 10/01/2019 11:15 AM WOUND/OSTOMY NURSE Oxygen Saturation 98% 10/01/2019 11:15 AM WOUND/OSTOMY NURSE Inhaled Oxygen Concentration - - Weight 79.5 kg (175 lb 5 oz) 09/25/2019 2:21 PM WOUND/OSTOMY NURSE Height 172.1 cm (5' 7.75) 09/25/2019 2:21 PM WOUND/OSTOMY NURSE Body Mass Index 26.85 09/25/2019 2:21 PM WOUND/OSTOMY NURSE documented in this encounter Discharge Instructions Discharge [...] remove your patch the day after surgery. D/OSTOMY NURSE documented in this encounter Medications at Time [...] with abdominoplasty and bilateral mastopexy today at [facility]. Complicated by syncopal episode and [...] symptomatic requires. Will see in am toevaluate. D/OSTOMY NURSE Jalen Garcia MD - 10/01/2019 2:26 PM [...] post op care. Will add iron supplement. D/OSTOMY NURSE documented in this encounter H&P Notes Supa Onofre MD - 10/01/2019 6:42 AM CST History and Physical Update I have reviewed the patient's History and Physical and have examined the patient in the pre-op area.The patient denies any interval changes in medical condition since the H&P. Patient is cleared for surgery in an ambulatory setting. Supa Onofre MD 10/01/2019 6:42 AM D/OSTOMY NURSE Source Note - Inf, Travel Freight And Passenger Agent - 09/18/2019 9:15 AM WOUND/OSTOMY NURSE documented in this encounter Nursing Notes Inna Siegel RN - 10/01/2019 2:22 PM CST Josefina Guzman 1985 [id number] Discharged via cart to [facility] at 1423 escorted by ambulance personnel Discharge information and arrangements included: yes. Patient, spouse went to the hospital. D/OSTOMY NURSE Inna Siegel RN - 10/01/2019 11:36 AM CST Pt has vasal vagal episode after trying to get up to a seated position. Pulse in the 30's / no B/P/.MDA gave ephedrine IV. VS returning to baseline. Pt woke up, stabalized. D/OSTOMY NURSE documented in this encounter OR Notes OR [...] correct x2. Jalen Garcia MD, PA /lbm D/OSTOMY NURSE OR Anesthesia - Supa Onofre MD - [...] Postop Hgb 9.4. Decided to transfer to [facility] after discussion with Dr Garcia. fully understands, along withthe patient, who are in agreement to transfer. Discussed case with Dr Canela in the ER. He accepted the pt for ER arrival. Electronically signed, Supa Onofre MD D/OSTOMY NURSE OR Surgeon - Jalen Garcia MD - 10/01/2019 6:49 AM CST Pre op; abdom laxity, breast ptosis Post op; same Procedure; Abdominoplasty, bilat mastopexy Surgeon; MARIA C Marinelli Anesth; GOT, .25% marcaine, Exparel Drains; 1 missy D/OSTOMY NURSE documented in this encounter Plan of Treatment Scheduled Orders Name Type Priority Associated Diagnoses Order S chedule CBC Lab STAT STAT for 1 Occu rrences (HGB,HCT,WBC,RBC,Plate start ing 10/01/2019 until let) 10/01/2019 documented as of this encounter Procedures Procedure Name Priority Date/Time Associated Comments Diagnosis ABDOMINOPLASTY 10/01/2019 7:00 AM Cosmetic WOUND/OSTOMY NURSE MASTOPEXY 10/01/2019 7:00 AM Cosmetic WOUND/OSTOMY NURSE UPT ([facility]) Routine 10/01/2019 6:10 AM Results for this WOUND/OSTOMY NURSE procedure are i n the results section. documented in this encounter Results CBC (HGB,HCT,WBC,RBC,Platelet) (10/01/2019 1:28 PM WOUND/OSTOMY NURSE) Specimen (Source) Anatomical Location Collection Method / Collectio n Time Received Time / Laterality Volume Blood Jalen Garcia MD HEMATOLOGY ORDERABLE Test - UPT ([facility]) (10/01/2019 6:10 AM WOUND/OSTOMY NURSE) P athologist Signature UPT ([facility]) Specimen (Source) Anatomical Collection Method Collection Time Re ceived Time Location / / Volume Laterality Urine 10/01/2019 6:10 AM WOUND/OSTOMY NURSE Supa Caldwell MD URINE ORDERABLE documented in [...] IV. Notify anesthesiologist. bupivacaine 0.25% (MARCAINE) injection Given 10/01/2019 8:02 AM WOUND/OSTOMY NURSE 20 mL Abdom en INTRA-PROCEDURE NEEDED, Starting on Tue10/01/19 at 0802, Until Tue10/01/19 at 1030, Intra-Op bupivacaine 0.25%-EPINEPHrine Given 10/01/2019 10:10 AM 20 mL Procedural 1:200,000 (PF) (SENSORCAINE) injection WOUND/OSTOMY NURSE INTRA-PROCEDURE NEEDED, Starting on Tue10/01/19 at 1010, Until Tue10/01/19 at 1030, Intra-Op bupivacaine liposome (PF) (EXPAREL) New Bag 10/01/2019 8:04 AM WOUND/OSTOMY NURSE 20 mL Abdomen injection CONTINUOUS PRN, Starting on Tue10/01/19 at 0804, Until Tue10/01/19 at 0804, Intra-Op dexamethasone (DECADRON) injection 4 mg 4 mg, Intravenous, ONCE NEEDED, 1 dos e, Starting on Tue10/01/19 at 1011, Until Tue10/01/19 at 1453, Phase 1/2, for allergic reaction diphenhydrAMINE (BENADRYL) injection 25 mg 25 mg, Intravenous, ONCE NEEDED, 1 do se, Starting on Tue10/01/19 at 1011, Until Tue10/01/19 at 1453, Phase 1/2, for allergic reaction EPINEPHrine (ADRENALIN) injection Given 10/01/2019 7:18 AM 0.5 mL Procedura l INTRA-PROCEDURE NEEDED, Starting on WOUND/OSTOMY NURSE Tue10/01/19 at 0718, Until Tue10/01/19 at 1030, Intra-Op fentaNYL (SUBLIMAZE) injection 25-50 mcg Given 10/01/2019 11:08 AM WOUND/OSTOMY NURSE 50 mcg 25-50 mcg, Intravenous, EVERY 5 MINUTES NEEDED, 18 doses, Starting on Tue10/01/19 at 1010, Until Tue10/01/19 at 1453, Phase 1/2, for acute surgical pain Given 10/01/2019 10:45 AM WOUND/OSTOMY NURSE 50 mcg HYDROmorphone (DILAUDID) syringe 0.2 mg 0.2 mg, Intravenous, EVERY 5 MINUTES NEEDED, 2 doses, Starting on Tue10/01/19 at 1010, Until Tue10/01/19 at 1453, Phase 1/2, Pain, when NOT taking PO hydrOXYzine pamoate (VISTARIL) capsule 25-50 Given 11:13 AM WOUND/OSTOMY NURSE 50 mg mg 25-50 mg, oral, NEEDED, [...] for pain control per recommendation of the [place] [employer], [place] for Safe Medication Practices (ISMP) and the [facility]. ondansetron (ZOFRAN) injection 4 mg [...] AM 1 patch Right Post (1.5mg) (TRANSDERM-SCOP) WOUND/OSTOMY NURSE Auricular patch 1 patch 1 patch, Transdermal, ONCE, 1 dose, On Tue10/01/19 at 0645 scopolamine 1mg/72 hours (1.5mg) (TRANSD ERM-SCOP) patch 1 patch 1 patch, Transdermal, ONCE NEEDED, 1 dose, Starting on Tue10/01/19 at 1011, Until Tue10/01/19 at 1453, Phase 1/2, for nausea. Rem ove in 24 hours. documented in this encounter Active and Recently Administered Medications Times are shown in WOUND/OSTOMY NURSE. Scheduled Medication Order 09/29/2019 09/30/2019 10/01/2019 clindamycin [...] 18 doses, Starting Tue10/01/19 at 1010, Until Tue10/01/19 at 1453, PACU, for acute surgical pain HYDROmorphone (DILAUDID) syringe 0.2 mg 0.2 mg, Intravenous, EVERY 5 MINUTES NEEDED, 2 doses, Starting Tue10/01/19 at 1010, Until Tue10/01/19 at 1453, PACU, Pain, when NOT taking [...] 1010, Until 10/01/19 at 1453, PACU, for shivering, Do not user meperidine for pain control per recommendation of th e [place] [employer] Society, [place] for S afe Medication Practices (ISMP) and the [facility] Association. ondansetron (ZOFRAN) injection 4 mg 4 mg, Intravenous, ONE TIME DOSE NEED ED, 2 doses, Starting Tue10/01/19 at 1011, Until 10/01/19 at 1453, PACU, Nausea & Vomiting saline [...] reaction documented in this encounter Care Teams Adjudication Specialist Relationship Specialty Start Date End Date Hoffert, Rei A PCP - General Family Medicine 10/01/19 [address] [place] [address] [facility] PCP - Primary [facility] [address] [place] [id number] documented as of this encounter
== END 2022-09-11 12:32 | disposition home or self-care (01) ==
PROVIDERS: Emergency Provider Emergency Medicine Emergency Medical Services; PCP Surgery
DX: S86.111A Strain of other muscle(s) and tendon(s) of posterior muscle group at lower leg level, right leg, initial encounter (principal); Y93.67 Activity, basketball
CPT/HCPCS: 93971; 99283; 99284

== ENCOUNTER 2024-10-15 15:51 | Outpatient (CLI) | payer BC, SELFPAY ==
--- OUTSIDE RECORDS SUMMARY | 2024-10-15 15:54 | XMS_ITS | Referral Summary ---
Author Organization [facility] Address [address] [place] [address] Care Team Providers Care Net Maker Name Role Phone Rei Pat Primary Care Provider [phone] Allergies Active Allergy Reactions Criticality Noted Date Comments Amoxicillin Rash Medium 08/23/2019 Medications oxyCODONE, immediate release, (ROXICODONE) 5 mg oral tablet TAKE 1 TABLET BY MOUTH EVERY 4 TO 6 HOURS NEEDED FOR PAIN 0 09/18/2019 Active ondansetron (ZOFRAN) 8 mg oral ODT DISSOLVE 1 TABLET IN MOUTH EVERY 8 HOURS NEEDED FOR NAUSEA AND VOMITING 0 09/18/2019 Active ciprofloxacin HCl (CIPRO) 500 mg oral tablet TAKE 1 TABLET BY MOUTH TWICE A DAY STARTING THE DAY AFTER SURGERY. TAKE UNTIL ALL GONE 0 09/18/2019 Active multivitamin (CERTAVITE) 18-400 mg-mcg oral tablet Take 1 tablet by mouth once daily. Active Lactobac no.41/Bifidobac t no.7 (PROBIOTIC-10 ORAL) Take 1 capsule by mouth once daily. Active scopolamine 1mg/72 hours, 1.5mg, (TRANSDERM-SCOP ) 1 mg over 3 days TD patch Apply 1 patch to skin ONCE. Active Active Problems Problem Noted Date Diagnosed Date Vasovagal syncope 10/01/2019 Social History Tobacco Use Types Packs/Day Years Used Date Smoking Tobacco: Never Smokeless Tobacco: Never Alcohol Use Standard Drinks/Week Comments Never 0 (1 standard drink = 0.6 oz pur e alcohol) AUDIT-C Answer Date Recorded Frequency of Alcohol Consumption Never 10/01/2019 Average Number of Drinks Not on file 019 Frequency of Binge Drinking Not on file 09/14 Comments Unknown Sex and Gender Information Value Date Recorded Sex Assigned at Not on file Legal Sex Female 10:07 AM CDT Gender Identity Not on file Sexual Orientation Not on file Last Filed Vital Signs Vital Sign Reading Time Taken Comments Blood Pressure 104/61 10/02/2019 1:25 PM EXECUTIVE VICE PRESIDENT AND CHIEF FINANCIAL OFFICER Pulse 83 10/02/2019 1:25 PM EXECUTIVE VICE PRESIDENT AND CHIEF FINANCIAL OFFICER Temperature 37 C (98.6 F) 10/02/2019 1:25 PM EXECUTIVE VICE PRESIDENT AND CHIEF FINANCIAL OFFICER Respiratory Rate 16 10/02/2019 1:25 PM EXECUTIVE VICE PRESIDENT AND CHIEF FINANCIAL OFFICER Oxygen Saturation 99% 10/02/2019 1:25 PM EXECUTIVE VICE PRESIDENT AND CHIEF FINANCIAL OFFICER Inhaled Oxygen Concentration - - Weight 79.5 kg (175 lb 5 oz) 10/01/2019 6:00 PM EXECUTIVE VICE PRESIDENT AND CHIEF FINANCIAL OFFICER Height 172.1 cm (5' 7.76) 10/01/2019 6:00 PM CS T Body Mass Index 26.85 10/01/2019 6:00 PM EXECUTIVE VICE PRESIDENT AND CHIEF FINANCIAL OFFICER Plan of Treatment Not on file Insurance [facility] FEDERAL EMPLOYEE Advance Directives For more information, please contact: [phone] * Full Code (Latest Code Status on File) Date Activated Date Inactivated Comments 10/01/2019 6:02 PM 10/02/2019 7:39 PM Question Answer Comments How was code status determined? Patient Care Teams Net Maker Relationship Specialty Start Date End Date Rei Pat [address] [place], [place] [phone] PCP - General Family Medicine 10/01/19
--- OUTSIDE RECORDS SUMMARY | 2024-10-15 15:54 | XMS_ITS | Clinical Summary ---
Author Organization [facility] Address [place], [place] [address] Care Team Providers Care Drum Maker Name Role Phone Unavailable Primary Care Provider Unavailabl e Allergies Active Allergy Reactions Criticality Noted Date Comments Amoxicillin Hives,*Unknown Low 08/09/2006 Medications Medication Sig Dispensed Refills Start Date End Date Status albuterol HFA (PRO-AIR; VENTOLIN; PROVENTIL) 90 mcg/actuation inhalerIndications:Bro nchitis Inhale 2 Puffs by mouth every 4 hours if needed (cough or wheezing). 18 g 02/12/2024 Active Active Problems Problem Noted Date Diagnosed Date Polyhydramnios in third trimester 04/10/2015 Supervision of other normal 2014 Anemia, unspecified 01/23/2013 LGSIL (low grade squamous in traepithelial lesion) on Pap smear 03/08/2012 Other acne 10/10/2006 Acute tonsillitis 05/10/2006 Overview (05/10/2006): multiple episods PALPITATIONS 11/16/2005 IMPINGEMENT SYNDROME 07/30/2005 SHOULDER SPRAIN 06/09/2005 WARTS 04/13/2005 Blood type, Rh positive Overview (09/18/2012): O positive Resolved Problems Problem Noted Date Diagnosed Date Resolved Date care, subsequent 09/18/2012 05/16/2013 Overview (03/08/2013): Elevated BP near the end of first GBS negative Immunizations Name Administration Dates Next Due Influenza, IIV3 (Age >=3 years) 08/14/2013,08/08 Influenza, IIV4 09/04/2015,2014 MMR 11/23/2013 Tdap 01/21/2015,01/23/2013,06/13/2009 Family History Medical History Relation Name Comments Diabetes type II Father Heart Disease Father Hypertension Father Other cancer Father bladder Cancer-breast Maternal Aunt 1 Cancer-breast Maternal Aunt 2 Other Mother non-cancer sunni errol from breast Genetic Other Family history of:~~Breast Cancer: Pat aunt~~Ovarian Cancer: No~~Colon CA: No~~Prostate/Testicular CA: No~~Osteoporosis: No~~Early CAD: No~~DM: PAt. gma, uncle~~Thyroid Dz: No Relation Name Status Comments Brother Alive Father Alive Maternal Aunt 1 Maternal Aunt 2 Maternal Grandfather Alive Maternal Grandmother Alive Mother Alive Other Paternal Grandfather (Age ?) can cer Paternal Grandmother (Age ?) can cer Sister Alive Son Alive Baudilio Social History Tobacco Use Types Packs/Day Years Used Date Smoking Tobacco: Never Smokeless Tobacco: Never Tobacco Cessation:Counseling Given: Yes Alcohol Use Standard Drinks/Week Comments No 0 (1 standard drink = 0.6 oz pur e alcohol) occ PHQ-2 Answer Date Recorded PHQ-2 TOTAL SCORE 0 03/12/2024 Social Connections Answer Date Recorded Frequency of Communication with Friends and Fami ly Not on file 03/12/2024 Financial Resource Strain Answer Date R ecorded Difficulty of Paying Living Expenses Not on file 11/14/2021 Difficulty of Paying Living Expenses Not on file 11/14/2021 Sex and Gender Information Value Date Recorded Sex Assigned at Female 05/26/2021 9:16 PM CDT Gender Identity Female 05/26/2021 9:16 PM CDT Sexual Orientation Straight 05/26/2021 9: 16 PM CDT Obstetrics History Para Term AB IAB SAB Ectopic Multiple Livin g Live Births 4 2 2 0 1 0 1 0 0 2 1 Date Outcome GA Total Labor Labor/2nd/3rd Weight Sex Type Anes PTL Lorna A1 A5 Name Clin SAB 2008 Term 40w 0d 90h 00m/ 3.78 kg (8 lb 5.5 oz) M Vag Livin g Presto n Balderas 2012 Term 40w 0d 10h 00m/ 3.8 kg (8 lb 6 oz) M Vag Hosea Comments:System Genera mamadou. Please review and update details. Last Filed Vital Signs Vital Sign Reading Time Taken Comments Blood Pressure 100/80 03/12/2024 11:46 AM CDT Pulse 89 03/12/2024 11:46 AM CDT Temperature 36.7 C (98.1 F) 03/12/2024 11:46 AM CDT Respiratory Rate 18 02/12/2024 2:14 PM CDT Oxygen Saturation 98% 03/12/2024 11: 46 AM CDT Inhaled Oxygen Concentration - - Weight 104.9 kg (231 lb 3.2 oz) 024 11:46 AM CDT Height 172.7 cm (5' 8) 03/12/2024 11:4 6 AM CDT Body Mass Index 35.15 03/12/2024 11:46 AM CDT Plan of Treatment Health Maintenance Due Date Last Done Comments Hepatitis C screening for age 18-79 2004 COVID-19 vaccine series ( season) 2024 02/13/2021 Influenza for age 9-49 07/15/2024 5, 2014, 08/14/2013, Additional history exists Tetanus booster 01/21/2025 01/21/2015, 01/12, 06/13/2009 BMI (ht and wt on same day) for age 18+ 03/12/2025 03/12/2024, 05/27/2021, 06/18/2020, Additional history exists Depression screening for age 12+ 03/12/2025 03/12/2024, 05/27/2021, 09/17/2019, Additional history exists Pap test for age 21-65 05/27/2026 , 05/27/2021, 06/10/2015, Additional history exists Tdap Completed 01/21/2015, 01/12, 06/13/2009 HIV for age 15-65 Completed 05/27/2021, , 05/02/2013, Additional history exists Pneumococcal series for age 6-64 Aged Out No longer eligible based on patient's age to complete this topic Procedures Procedure Name Priority Date/Time Associated Diagnosis Comments ANTI HIV 1/2 Routine 05/27/2021 11:54 AM CDT Routine screening for STI (sexually transmitted infection) MD OPHTHALMOLOGIST THIN PREP PAP SCREEN IMAGED Routine 05/27/2021 11:35 AM CDT Screening for malignant neoplasm of cervix from Last 3 Months or Most Recently Relevant to Health Maintenance Results * ANTI HIV 1/2 (05/27/2021 11:54 AM CDT) HIV-1/HIV-2 ANTIBODY Non-Reacti ve Non-Reacti ve 05/27/2021 5:45 PM CDT [facility] Comment:HIV-1 p24 and HIV-1/ HIV-2 Ab not detected. Blood BLOOD SPECIMEN / Unknown Venipuncture / Unknown 05/27/2021 11:54 AM CDT 05/27/2021 11:54 AM CDT Radha Castaneda MD [facility] [address] [place] [address] * MD OPHTHALMOLOGIST THIN PREP PAP SCREEN IMAGED (05/27/2021 11:35 AM CDT) Case Report Gynecologic Cytology Report Case: [id number] Authorizing Provider: Radha Castaneda MD Collected: 05/27/2021 1135 Ordering Location: [facility] Received: 05/27/2021 1156 Clinic First Screen: Marbella Manuel Pathologist: Carla Castro MD Specimen: MD OPHTHALMOLOGIST ThinPrep Vial Screening, Cervical 06/09/2021 11:58 AM CDT [facility]-C ENTRAL LABORATORY INTERPRETATION/ RESULT NEGATIVE FOR INTRAEPITHELIAL LESION OR MALIGNANCY (NIL) (none) 06/09/2021 11:58 AM CDT [facility]- ENTRAL LABORATORY R NON-NEOPLASTIC FINDING(S) Reactive cellular changes associated with inflammation/repa ir 06/09/2021 11:58 AM CDT [facility]-C ENTRAL LABORATORY SPECIMEN ADEQUACY Satisfactory for evaluation Endocervical component present 06/09/2021 11:58 AM CDT [facility] ENTRAL LAB[facility] HPV REQUEST HPV and PAP 06/09/2021 11:58 AM CDT [facility] Date of LMP 05/12/2021 06/09/2021 11:58 AM CDT [facility] ENTR[facility] Last Pap Date 06/10/15 06/09/2021 11:58 AM CDT [facility] ENTR[facility] Last Pap Result NIL 11:58 AM CDT [facility] Abnormal Pap or Peyton Bx in last 5 years No 06/09/2021 11:58 AM CDT [facility]AL [facility] Menstrual Status Regular Periods 06/09/2021 11:58 AM CDT [facility] EN[facility]AL LAB[facility] Peyton Bx Done Today No 06/09/2021 11:58 AM CDT [facility] EN[facility] Additional Information None given 06/09/2021 11:58 AM CDT [facility] ENTRAL [facility] Comment: Cytology is screened at [facility] - [address], [place] [address] and [facility] - [address] [place] [address] and [facility] - [address] [place] [address] Interpreted at [facility] Central Laboratory - [address], [place] [address] Automated Review Successful 06/09/2021 11:58 AM CDT [facility] EN[facility] Comment:Specimen processed s uccessfully by automated kohinoor operator device, ThinPrep Imaging System, [employer] ANCILLARY TESTING MD OPHTHALMOLOGIST HPV Ordered, Please see separate report 06/09/2021 11:58 AM CDT [facility] ENTRAL [facility] Note The pap test is a screening technique, not a diagnostic procedure. It is used primarily to screen for squamous cancers and precursor lesions. Published studies have shown that it is subject to both false negative and false positive results. The pap test should not be used as the sole means to diagnose or exclude pre-malignant and malignant lesions. 06/09/2021 11:58 AM CDT [facility] ENTRAL LABORATORY Other (Cervical) Non-Blood / Unknown 05/27/2021 11:35 AM CDT 05/27/2021 11:56 AM CDT Radha Castaneda MD PATHOLOGY/CYTOLOGY [facility]-CENTRAL LABORATORY [address] [place] [address], [place] from Last 3 Months or Most Recently Relevant to Health Maintenance Advance Directives * Full Code (Latest Code Status on File) Date Activated Date Inactivated Comments 06/11/2009 1:33 AM 06/13/2009 4:30 PM * Full Code Date Activated Date Inactivated Comments 06/09/2009 3:58 AM 06/09/2009 1:58 PM * Full Code Date Activated Date Inactivated Comments 06/08/2009 8:55 AM 06/08/2009 2:39 PM * Full Code Date Activated Date Inactivated Comments 03/04/2009 6:41 PM 03/04/2009 9:46 PM
--- OUTSIDE RECORDS SUMMARY | 2024-10-15 15:54 | XMS_ITS | Clinical Summary ---
Author Organization [facility] Address [address] [place] [address] Care Team Providers Care Coater Associate Name Role Phone Rei Pat Primary Care Provider [phone] Allergies Active Allergy Reactions Criticality Noted Date [...] Noted Date Diagnosed Date Vasovagal syncope 10/01/2019 Family History Medical [...] Comments Blood Pressure 104/61 10/02/2019 1:25 PM MACHINE JOINER CEMENTER Pulse 83 10/02/2019 1:25 PM MACHINE JOINER CEMENTER Temperature 37 C (98.6 F) 10/02/2019 1:25 PM MACHINE JOINER CEMENTER Respiratory Rate 16 10/02/2019 1:25 PM MACHINE JOINER CEMENTER Oxygen Saturation 99% 10/02/2019 1:25 PM MACHINE JOINER CEMENTER Inhaled Oxygen Concentration - - Weight 79.5 kg (175 lb 5 oz) 10/01/2019 6:00 PM MACHINE JOINER CEMENTER Height 172.1 cm (5' 7.76) 10/01/2019 6:00 PM CS T Body Mass Index 26.85 10/01/2019 6:00 PM MACHINE JOINER CEMENTER Plan of Treatment Health Maintenance Due Date Last Done Comments Hepatitis C Screening 1985 Pap Smear 1986 Anxiety Screening (CLARK-2) 1987 Depression Assessment (PHQ-2) 1987 COVID-19 Vaccine (2023-2 5 season) 2024 Influenza Vaccine (#1) 2024 Adult Tetanus Booster 01/21/2025 01/21/2015 , 01/23/2013, 06/13/2009 RSV Vaccines (1 - 1-dose 75+ series) 2061 Pneumococcal <65 Aged Out No longer e ligible based on patient's age to complete this topic Insurance [employer] FEDERAL EMPLOYEE Advance Directives For more information, please contact: [phone] * Full Code (Latest Code Status on File) Date Activated Date Inactivated Comments 10/01/2019 6:02 PM 10/02/2019 7:39 PM Question Answer Comments How was code status determined? Patient Care Teams Coater Associate Relationship Specialty Start Date End Date Rei Pat [address] [place] [address] PCP - General Family Medicine 10/01/19
[2024-10-18 07:30] LABS: HPV Source Cervix; HPV, High Risk by TMA Not Detected
== END 2024-10-15 15:52 | disposition home or self-care (01) ==
PROVIDERS: PCP Surgery; Visit Provider Obstetrics & Gynecology
DX: N92.0 Excessive and frequent menstruation with regular cycle (principal); N39.3 Stress incontinence (female) (male); Z12.4 Encounter for screening for malignant neoplasm of cervix
CPT/HCPCS: 80061; 82947; 85240; 85245; 85246; 87086; 87624; 87625; 88141; 88142

== ENCOUNTER 2024-10-18 08:45 | Outpatient (CLI) | payer BC, SELFPAY ==
--- OUTSIDE RECORDS SUMMARY | 2024-10-22 02:41 | XMS_ITS | Clinical Summary ---
Author Organization [facility] Address [address] [place] [address] Care Team Providers Care Tailings Worker Name Role Phone Rei Pat Primary Care Provider [phone] Allergies Active Allergy Reactions Criticality Noted Date [...] Comments Blood Pressure 104/61 10/02/2019 1:25 PM SEASONAL RECRUITER Pulse 83 10/02/2019 1:25 PM SEASONAL RECRUITER Temperature 37 C (98.6 F) 10/02/2019 1:25 PM SEASONAL RECRUITER Respiratory Rate 16 10/02/2019 1:25 PM SEASONAL RECRUITER Oxygen Saturation 99% 10/02/2019 1:25 PM SEASONAL RECRUITER Inhaled Oxygen Concentration - - Weight 79.5 kg (175 lb 5 oz) 10/01/2019 6:00 PM SEASONAL RECRUITER Height 172.1 cm (5' 7.76) 10/01/2019 6:00 PM CS T Body Mass Index 26.85 10/01/2019 6:00 PM SEASONAL RECRUITER Plan of Treatment Health Maintenance Due Date [...] Advance Directives For more information, please contact: [phone] * Full Code (Latest Code Status on File) Date Activated Date Inactivated Comments 10/01/2019 6:02 PM 10/02/2019 7:39 PM Question Answer Comments How was code status determined? Patient Care Teams Tailings Worker Relationship Specialty Start Date End Date Rei Pat [address] [place] [address] PCP - General Family Medicine 10/01/19
--- OUTSIDE RECORDS SUMMARY | 2024-10-22 02:41 | XMS_ITS | Referral Summary ---
Author Organization [facility] Address [address] [place] [address] Care Team Providers Care Brick Cleaner Name Role Phone Rei Pat Primary Care Provider Allergies Active Allergy Reactions Criticality Noted Date [...] Comments Blood Pressure 104/61 10/02/2019 1:25 PM ASSOCIATE PROFESSOR OF SOCIOLOGY Pulse 83 10/02/2019 1:25 PM ASSOCIATE PROFESSOR OF SOCIOLOGY Temperature 37 C (98.6 F) 10/02/2019 1:25 PM ASSOCIATE PROFESSOR OF SOCIOLOGY Respiratory Rate 16 10/02/2019 1:25 PM ASSOCIATE PROFESSOR OF SOCIOLOGY Oxygen Saturation 99% 10/02/2019 1:25 PM ASSOCIATE PROFESSOR OF SOCIOLOGY Inhaled Oxygen Concentration - - Weight 79.5 kg (175 lb 5 oz) 10/01/2019 6:00 PM ASSOCIATE PROFESSOR OF SOCIOLOGY Height 172.1 cm (5' 7.76) 10/01/2019 6:00 PM CS T Body Mass Index 26.85 10/01/2019 6:00 PM ASSOCIATE PROFESSOR OF SOCIOLOGY Plan of Treatment Not on file Insurance [facility] FEDERAL EMPLOYEE Advance Directives For more information, please contact: [phone] * Full Code (Latest Code Status on File) Date Activated Date Inactivated Comments 10/01/2019 6:02 PM 10/02/2019 7:39 PM Question Answer Comments How was code status determined? Patient Care Teams Brick Cleaner Relationship Specialty Start Date End Date Rei Pat [address] [place], [place] [id number] PCP - General Family Medicine 10/01/19
--- OUTSIDE RECORDS SUMMARY | 2024-10-22 02:41 | XMS_ITS | Clinical Summary ---
Author Organization [facility] Address [place], [place] [address] Care Team Providers Care Medical Social Worker Name Role Phone Unavailable Primary Care Provider Unavailabl e Allergies Active Allergy Reactions Criticality Noted Date Comments Amoxicillin Hives,*Unknown Low 08/09/2006 Medications albuterol HFA (PRO-AIR; VENTOLIN; PROVENTIL) 90 mcg/actuation inhalerIndicatio ns:Bronchitis Inhale 2 Puffs by mouth every 4 [...] Department Care Team Description 10/18/2024 Lab Requisition [facility] CENTRAL LAB [phone] Gina Hunter MD from Last 3 Months [...] Paying Living Expenses Not on file 11/14/2021 Comments No Sex and Gender Information Value Date Recorded Sex Assigned at Female 05/26/2021 9:16 PM CDT Legal Sex Female 5:28 AM PASSENGER CONDUCTOR Gender Identity Female 05/26/2021 9:16 PM CDT Sexual Orientation Straight 05/26/2021 9: 16 PM CDT Occupation Industry Job Start Date Job End Date Not on file Not on file Not on file Not on file Obstetrics History Para Term AB IAB SAB Ectopic Multiple Livin g Live Births 4 2 2 0 1 0 1 0 0 2 1 Date Outcome GA Total Labor Labor/2nd/3rd Weight Sex Type Anes PTL Lorna A1 A5 Name Clin SAB 2008 Term 40w 0d 90h 00m/ 3.78 kg (8 lb 5.5 oz) M Vag Livin g Vannessao n Balderas 2012 Term 40w 0d 10h [...] Procedure Name Priority Date/Time Associated Diagnosis Comments LAB TRACKING EVENT Routine 10/15/2024 3: 45 PM PASSENGER CONDUCTOR ANTI HIV 1/2 Routine 05/27/2021 11:54 AM CDT Routine screening for STI (sexually transmitted infection) RUSSIAN LANGUAGE INSTRUCTOR THIN PREP PAP SCREEN IMAGED Routine 05/27/2021 11:35 AM CDT Screening for malignant neoplasm of cervix from Last 3 Months or Most Recently Relevant to Health Maintenance Results * LAB TRACKING EVENT (10/15/2024 3:45 PM PASSENGER CONDUCTOR) Other (Other) Client Collect / Unknown 10/15/2024 3:45 PM PASSENGER CONDUCTOR 10/18/2024 6:17 AM PASSENGER CONDUCTOR us Gina Hunter MD LAB BILL ONLY Final Re sult [facility] [address] [place] [address], * ANTI HIV 1/2 (05/27/2021 11:54 AM CDT) HIV-1/HIV-2 ANTIBODY Non-Reacti ve Non-Reacti ve 05/27/2021 5:45 PM CDT [facility] TRAL LABORAT[facility] Comment:HIV-1 p24 and HIV-1/ HIV-2 Ab not detected. Blood BLOOD SPECIMEN / Unknown Venipuncture / Unknown 05/27/2021 11:54 AM CDT 05/27/2021 11:54 AM CDT us Radha Castaneda MD SEND OUTS Final Resul t [facility] [address] [place] [address], [place] * RUSSIAN LANGUAGE INSTRUCTOR THIN PREP PAP SCREEN IMAGED (05/27/2021 11:35 AM CDT) Case Report Gynecologic Cytology Report Case: [id number] Authorizing Provider: Radha Castaneda MD Collected: 05/27/2021 1135 Ordering Location: [facility] Received: 05/27/2021 1156 Clinic First Screen: Marbella Manuel Pathologist: Carla Castro MD Specimen: RUSSIAN LANGUAGE INSTRUCTOR ThinPrep Vial Screening, Cervical 06/09/2021 11:58 AM CDT [facility] ENTRAL LAB[facility] INTERPRETATION/ RESULT NEGATIVE FOR INTRAEPITHELIAL LESION OR MALIGNANCY (NIL) (none) 06/09/2021 11:58 AM CDT [facility] R NON-NEOPLASTIC FINDING(S) Reactive cellular changes associated with inflammation/repa ir 06/09/2021 11:58 AM CDT [facility] SPECIMEN ADEQUACY Satisfactory for evaluation Endocervical component present 06/09/2021 11:58 AM CDT [facility] HPV REQUEST HPV and PAP 06/09/2021 11:58 AM CDT [facility] Date of LMP 05/12/2021 06/09/2021 11:58 AM CDT [facility] Last Pap Date 06/10/15 06/09/2021 11:58 AM CDT [facility] Last Pap Result NIL 11:58 AM CDT [facility] Abnormal Pap or Stephenson Bx in last 5 years No 06/09/2021 11:58 AM CDT [facility] ENTRAL LABORATORY Menstrual Status Regular Periods 06/09/2021 11:58 AM CDT [facility] ENTRAL LABORATORY Stephenson Bx Done Today No 06/09/2021 11:58 AM CDT [facility] Additional Information None given 06/09/2021 11:58 AM CDT [facility] ENTRAL LABORATORY Comment: Cytology is screened at [facility] - [address], [place] [address] and [facility] - [address], [place] [address] and [facility] - [address] [place] [address] Interpreted at [facility] - [address], [place] [address] Automated Review Successful 06/09/2021 11:58 AM CDT [facility] ENTROR LABORATORY Comment:Specimen processed s uccessfully by automated broker associate device, ThinPrep Imaging System, [employer] ANCILLARY TESTING RUSSIAN LANGUAGE INSTRUCTOR HPV Ordered, Please see separate report 06/09/2021 11:58 AM CDT [facility] Note The pap test is a [...] and malignant lesions. 06/09/2021 11:58 AM CDT [facility] Other (Cervical) Non-Blood / Unknown 05/27/2021 11:35 AM CDT 05/27/2021 11:56 AM CDT us Radha Castaneda MD PATHOLOGY/CYTOLOGY Final Re sult [facility] [address] [place] [address], [place] from Last 3 Months or Most Recently Relevant to Health Maintenance Insurance [facility] Advance Directives * Full Code (Latest Code [...]
== END 2024-10-18 08:46 | disposition home or self-care (01) ==
LOC: NFLDREF 10-22 02:40
PROVIDERS: PCP Surgery; Referring Provider Surgery; Visit Provider Obstetrics & Gynecology
DX: N92.0 Excessive and frequent menstruation with regular cycle (principal); Z13.6 Encounter for screening for cardiovascular disorders; Z13.1 Encounter for screening for diabetes mellitus; N84.0 Polyp of corpus uteri; N83.201 Unspecified ovarian cyst, right side; N94.6 Dysmenorrhea, unspecified
CPT/HCPCS: 80061; 82947; 85240; 85245; 85246

== ENCOUNTER 2024-10-18 12:18 | Outpatient (CLI) | payer BC, SELFPAY ==
--- NOTE | 2024-10-18 12:15 | CRLHL7_ITS ---
For Patients: As a result of the Century Cures Act, medical imaging exams and procedure reports are released immediately into your electronic medical record. You may view this report before your referring provider. If you have questions, please contact your health care provider. INDICATION: Excessive and frequent menses. COMPARISON: Ultrasound of the pelvis from 06/22/2021 FINDINGS: Transvaginal and transabdominal ultrasound examination of the female pelvis was performed. Initial examination is performed with transabdominal technique and transvaginal technique is used for better visualization of the pelvic structures. The uterus is anteverted with no evidence of mass. It measures 8.8 x 5.1 x 6.0 cm. The endometrial lining is moderately increased in thickness at 15 mm. There are several mildly echogenic regions along the margins of the endometrial lining anteriorly and posteriorly consistent with multiple small polyps. These are not present on the previous ultrasound. There is an irregular complex cyst in the right ovary measuring 2.4 x 2.1 x 2.2 centimeters consistent with a hemorrhagic cyst. The ovaries are normal in size, the right measuring 4.4 x 2.2 x 2.8 cm and the left measuring 4.1 x 1.3 x 1.9 cm. There is normal color and pulse doppler flow in both ovaries. There is no sign of free fluid in the pelvis. IMPRESSION: 1. Multiple small echogenic polyps in the mildly thickened endometrial lining. These are not present on the previous ultrasound. 2. New hemorrhagic cyst in the right ovary measuring up to 2.4 centimeters in diameter, requiring no further follow-up. Dictated by Selvin Shepherd MD @ 10/19/2024 9:34:58 PM (Electronically Signed)
--- OUTSIDE RECORDS SUMMARY | 2024-10-18 12:20 | XMS_ITS | Referral Summary ---
Author Organization [facility] Address [address] [place] [address] Care Team Providers Care Marker Shipments Name Role Phone Rei Pat Primary Care Provider [phone] Allergies Active Allergy Reactions Criticality Noted Date [...] Comments Blood Pressure 104/61 10/02/2019 1:25 PM CORN CUTTER Pulse 83 10/02/2019 1:25 PM CORN CUTTER Temperature 37 C (98.6 F) 10/02/2019 1:25 PM CORN CUTTER Respiratory Rate 16 10/02/2019 1:25 PM CORN CUTTER Oxygen Saturation 99% 10/02/2019 1:25 PM CORN CUTTER Inhaled Oxygen Concentration - - Weight 79.5 kg (175 lb 5 oz) 10/01/2019 6:00 PM CORN CUTTER Height 172.1 cm (5' 7.76) 10/01/2019 6:00 PM CS T Body Mass Index 26.85 10/01/2019 6:00 PM CORN CUTTER Plan of Treatment Not on file Insurance [facility] FEDERAL EMPLOYEE Advance Directives For more information, please contact: [phone] * Full Code (Latest Code Status on File) Date Activated Date Inactivated Comments 10/01/2019 6:02 PM 10/02/2019 7:39 PM Question Answer Comments How was code status determined? Patient Care Teams Marker Shipments Relationship Specialty Start Date End Date Rei Pat [address] [place], [place] [id number] PCP - General Family Medicine 10/01/19
--- OUTSIDE RECORDS SUMMARY | 2024-10-18 12:20 | XMS_ITS | Clinical Summary ---
Author Organization [facility] Address [place], [place] [address] Care Team Providers Care Mortgage Loan Underwriter Name Role Phone Unavailable Primary Care Provider [...] near the end of first GBS negative Encounters Date Type Department Care Team Description 10/18/2024 Lab Requisition [facility] CENTRAL LAB [phone] Gina Hunter MD from Last 3 Months Immunizations Name Administration [...] kg (8 lb 5.5 oz) M Vag Livcarmen g Bobby Balderas 2012 Term 40w 0d 10h 00m/ [...] Routine screening for STI (sexually transmitted infection) SAP DATA ARCHITECT THIN PREP PAP SCREEN IMAGED Routine 05/27/2021 11:35 AM CDT Screening for malignant neoplasm of cervix from Last 3 Months or Most Recently Relevant to Health Maintenance Results * ANTI HIV 1/2 (05/27/2021 11:54 AM CDT) Pathologist [facility] HIV-1/HIV-2 ANTIBODY Non-Reacti ve Non-Reacti ve 05/27/2021 5:45 PM CDT [facility] TRAL LABORATORY Comment:HIV-1 p24 and HIV-1/ HIV-2 Ab not detected. Blood BLOOD SPECIMEN / Unknown Venipuncture / Unknown 05/27/2021 11:54 AM CDT 05/27/2021 11:54 AM CDT Radha Castaneda MD [facility] [address] [place] [address], * SAP DATA ARCHITECT THIN PREP PAP SCREEN IMAGED (05/27/2021 11:35 AM CDT) Case Report Gynecologic Cytology Report Case: [id number] Authorizing Provider: Radha Castaneda MD Collected: 05/27/2021 1135 Ordering Location: [facility] Received: 05/27/2021 1156 Clinic First Screen: Marbella Manuel Pathologist: Carla Castro MD Specimen: SAP DATA ARCHITECT ThinPrep Vial Screening, Cervical 06/09/2021 11:58 AM CDT [facility]- ENTRAL LABORATORY INTERPRETATION/ RESULT NEGATIVE FOR INTRAEPITHELIAL LESION OR MALIGNANCY (NIL) (none) 06/09/2021 11:58 AM CDT [facility] R NON-NEOPLASTIC FINDING(S) Reactive cellular changes associated with inflammation/repa ir 06/09/2021 11:58 AM CDT [facility] ENTRAL LABORATORY SPECIMEN ADEQUACY Satisfactory for evaluation Endocervical component present 06/09/2021 11:58 AM CDT [facility] HPV REQUEST HPV and PAP 06/09/2021 11:58 AM CDT [facility] ENTRNM LABORATORY Date of LMP 05/12/2021 06/09/2021 11:58 AM CDT [facility] ENTRAL LABORATORY Last Pap Date 06/10/15 06/09/2021 11:58 AM CDT [facility] ENTRNM LABORATORY Last Pap Result NIL 11:58 AM CDT [facility] ENTRAL LABORATORY Abnormal Pap or Bonita Bx in last 5 years No 06/09/2021 11:58 AM CDT [facility] ENTRNM LABORATORY Menstrual Status Regular Periods 06/09/2021 11:58 AM CDT [facility] Bonita Bx Done Today No 06/09/2021 11:58 AM CDT [facility] ENTRNM LABORATORY Additional Information None given 06/09/2021 11:58 AM CDT [facility] ENTRAL LABORATORY Comment: Cytology is screened at [facility], [facility] - [address], [place] [address] and [facility] - [address], [place] [address] and [facility] - [address] [place] [address] Interpreted at [facility] Central Laboratory - [address], [place] [address] Automated Review Successful 06/09/2021 11:58 AM CDT [facility] ENTRNM LABORATORY Comment:Specimen processed s uccessfully by automated subscription agent device, ThinPrep Imaging System, [employer] ANCILLARY TESTING SAP DATA ARCHITECT HPV Ordered, Please see separate report 06/09/2021 11:58 AM CDT [facility]-C ENTRAL LABORATORY Note The pap test is [...] and malignant lesions. 06/09/2021 11:58 AM CDT [facility] [employer] LABORATORY-C ENTRAL LABORATORY Other (Cervical) Non-Blood / Unknown 05/27/2021 11:35 AM CDT 05/27/2021 11:56 AM CDT Radha Castaneda MD PATHOLOGY/CYTOLOGY [facility]OR[facility]-CENTRAL LABORATORY [address] [place] [address], [place] from Last 3 Months or Most [...]
--- OUTSIDE RECORDS SUMMARY | 2024-10-18 12:20 | XMS_ITS | Clinical Summary ---
Author Organization [facility] Address [address] [place] [address] Care Team Providers Care Track Man Name Role Phone Rei Pat Primary Care Provider [phone] Allergies Active Allergy Reactions Criticality Noted Date [...] Comments Blood Pressure 104/61 10/02/2019 1:25 PM FOREST LAW AND POLICY PROFESSOR Pulse 83 10/02/2019 1:25 PM FOREST LAW AND POLICY PROFESSOR Temperature 37 C (98.6 F) 10/02/2019 1:25 PM FOREST LAW AND POLICY PROFESSOR Respiratory Rate 16 10/02/2019 1:25 PM FOREST LAW AND POLICY PROFESSOR Oxygen Saturation 99% 10/02/2019 1:25 PM FOREST LAW AND POLICY PROFESSOR Inhaled Oxygen Concentration - - Weight 79.5 kg (175 lb 5 oz) 10/01/2019 6:00 PM FOREST LAW AND POLICY PROFESSOR Height 172.1 cm (5' 7.76) 10/01/2019 6:00 PM CS T Body Mass Index 26.85 10/01/2019 6:00 PM FOREST LAW AND POLICY PROFESSOR Plan of Treatment Health Maintenance Due Date [...] Advance Directives For more information, please contact: [phone] * Full Code (Latest Code Status on File) Date Activated Date Inactivated Comments 10/01/2019 6:02 PM 10/02/2019 7:39 PM Question Answer Comments How was code status determined? Patient Care Teams Track Man Relationship Specialty Start Date End Date Rei Pat [address] [place] [address] PCP - General Family Medicine 10/01/19
== END 2024-10-18 12:19 | disposition home or self-care (01) ==
LOC: US 12:18
PROVIDERS: PCP Surgery; Visit Provider Obstetrics & Gynecology
DX: N92.0 Excessive and frequent menstruation with regular cycle (principal); N84.0 Polyp of corpus uteri; N83.201 Unspecified ovarian cyst, right side; N94.6 Dysmenorrhea, unspecified
CPT/HCPCS: 76830; 76856

== ENCOUNTER 2024-11-21 08:23 | Day surgery (SDC) | payer BC, SELFPAY ==
[2024-11-21] VITALS (23 sets, daily range): BP systolic 109–130; BP diastolic 61–90; PULSE 60–85; RESP 16–20; TEMP 36.4–37.2; O2SAT 93–100; BMI 35.2
[2024-11-21 06:44] LABS: Ur HCG Qualitative* Negative (Negative)
--- OUTSIDE RECORDS SUMMARY | 2024-11-21 08:26 | XMS_ITS | Referral Summary ---
Author Organization [facility] Address [address] [place] [address] Care Team Providers Care Radiation Protection Technician Name Role Phone Rei Pat Primary Care Provider [phone] Allergies Active Allergy Reactions Criticality Noted Date [...] Comments Blood Pressure 104/61 10/02/2019 1:25 PM PRECISION FARMING COORDINATOR Pulse 83 10/02/2019 1:25 PM PRECISION FARMING COORDINATOR Temperature 37 C (98.6 F) 10/02/2019 1:25 PM PRECISION FARMING COORDINATOR Respiratory Rate 16 10/02/2019 1:25 PM PRECISION FARMING COORDINATOR Oxygen Saturation 99% 10/02/2019 1:25 PM PRECISION FARMING COORDINATOR Inhaled Oxygen Concentration - - Weight 79.5 kg (175 lb 5 oz) 10/01/2019 6:00 PM PRECISION FARMING COORDINATOR Height 172.1 cm (5' 7.76) 10/01/2019 6:00 PM CS T Body Mass Index 26.85 10/01/2019 6:00 PM PRECISION FARMING COORDINATOR Plan of Treatment Not on file Insurance [facility] FEDERAL EMPLOYEE Advance Directives For more information, please contact: [phone] * Full Code (Latest Code Status on File) Date Activated Date Inactivated Comments 10/01/2019 6:02 PM 10/02/2019 7:39 PM Question Answer Comments How was code status determined? Patient Care Teams Radiation Protection Technician Relationship Specialty Start Date End Date Rei Pat [address] [place], [place] [phone] PCP - General Family Medicine 10/01/19
--- OUTSIDE RECORDS SUMMARY | 2024-11-21 08:26 | XMS_ITS | Clinical Summary ---
Author Organization [facility] Address [address] [place] [address] Care Team Providers Care Coffee Sampler Name Role Phone Rei Pat Primary Care Provider [phone] Allergies Active Allergy Reactions Criticality Noted Date [...] Comments Blood Pressure 104/61 10/02/2019 1:25 PM ENGLISH AS A SECOND LANGUAGE INSTRUCTOR Pulse 83 10/02/2019 1:25 PM ENGLISH AS A SECOND LANGUAGE INSTRUCTOR Temperature 37 C (98.6 F) 10/02/2019 1:25 PM ENGLISH AS A SECOND LANGUAGE INSTRUCTOR Respiratory Rate 16 10/02/2019 1:25 PM ENGLISH AS A SECOND LANGUAGE INSTRUCTOR Oxygen Saturation 99% 10/02/2019 1:25 PM ENGLISH AS A SECOND LANGUAGE INSTRUCTOR Inhaled Oxygen Concentration - - Weight 79.5 kg (175 lb 5 oz) 10/01/2019 6:00 PM ENGLISH AS A SECOND LANGUAGE INSTRUCTOR Height 172.1 cm (5' 7.76) 10/01/2019 6:00 PM CS T Body Mass Index 26.85 10/01/2019 6:00 PM ENGLISH AS A SECOND LANGUAGE INSTRUCTOR Plan of Treatment Health Maintenance Due Date [...] Advance Directives For more information, please contact: [phone] * Full Code (Latest Code Status on File) Date Activated Date Inactivated Comments 10/01/2019 6:02 PM 10/02/2019 7:39 PM Question Answer Comments How was code status determined? Patient Care Teams Coffee Sampler Relationship Specialty Start Date End Date Rei Pat [address] [place] [address] PCP - General Family Medicine 10/01/19
--- OUTSIDE RECORDS SUMMARY | 2024-11-21 08:26 | XMS_ITS | Clinical Summary ---
Author Organization [facility] Address [place], [place] [address] Care Team Providers Care Rn Psych Name Role Phone Unavailable Primary Care Provider [...] Date Type Department Care Team Description 10/18/2024 Orders Only [facility] Scanner 1 scan: (1-Ord) [facility], PELVIC TA AND TV, 10/18/2024 10/18/2024 Lab Requisition [facility] [phone] Gina Hunter MD from Last 3 Months [...] PM CDT Legal Sex Female 5:28 AM HR RECRUITER Gender Identity Female 05/26/2021 9:16 PM CDT [...] Additional history exists Pneumococcal series for age 6-49 Aged Out No longer eligible based on patient's age to complete this topic Procedures Procedure Name Priority Date/Time Associated Diagnosis Comments SCAN-ULTRASOUND REPORT 10/18/2024 12:00 AM HR RECRUITER LAB TRACKING EVENT Routine 10/15/2024 3: 45 PM HR RECRUITER PATH TISSUE EXAM Routine 10/15/2024 3:45 PM HR RECRUITER ANTI HIV 1/2 Routine 05/27/2021 11:54 AM CDT Routine screening for STI (sexually transmitted infection) GRAIN ELEVATOR CLERK THIN PREP PAP SCREEN IMAGED Routine 05/27/2021 11:35 AM CDT Screening for malignant neoplasm of cervix from Last 3 Months or Most Recently Relevant to Health Maintenance Results * SCAN-ULTRASOUND REPORT (10/18/2024 12:00 AM HR RECRUITER) Anatomical Region Laterality Modality Other us Scanner OTHER Final Result * LAB TRACKING EVENT (10/15/2024 3:45 PM HR RECRUITER) Other (Other) Client Collect / Unknown 10/15/2024 3:45 PM HR RECRUITER 10/18/2024 6:17 AM HR RECRUITER us Gina Hunter MD LAB BILL ONLY Final Re sult [facility] [address] [place] [address], [place] * PATH TISSUE EXAM (10/15/2024 3:45 PM HR RECRUITER) Case Report Pathology Report Case: [id number] Authorizing Provider: Gina Hunter MD Collected: 10/15/2024 1545 Ordering Location: [facility] Received: 10/18/2024 1415 Pathologist: Tariq Smith MD Specimen: Endometrial Biopsy 10/22/2024 8:43 AM HR RECRUITER [facility] Final Diagnosis A) ENDOMETRIUM, BIOPSY: 1. Proliferative endometrium 2. Negative for chronic endometritis 3. Negative for hyperplasia, atypia, and malignancy 10/22/2024 8:43 AM [facility] Clinical Information Excessive and frequent menstruation with regular cycle 10/22/2024 8:43 AM [facility] Gross Description A) Received in formalin, labeled with the patient's name and date of , is a 2.5 x 1.3 x 0.2 cm aggregate of pink-de la torre mucosa admixed with clotted blood. The specimen is entirely submitted in 1 cassette. TLF 10/18/2024 10/22/2024 8:43 AM [facility] Microscopic Description The final diagnosis is based on microscopic examination of appropriate sections of all specimens. 10/22/2024 8:43 AM [facility] Additional Information Interpreted at [facility] - [address] [place], [place] [address]e S. [facility] [address] [address] 10/22/2024 8:43 AM [facility] Other (Endometrial Biopsy) 10/15/2024 3:45 PM HR RECRUITER 10/18/2024 2:15 PM HR RECRUITER Gina Hunter MD PATHOLOGY/CYTOLOGY Final Result [facility] [address] [place] [address], * ANTI HIV 1/2 (05/27/2021 11:54 AM CDT) HIV-1/HIV-2 ANTIBODY Non-Reacti ve Non-Reacti ve 05/27/2021 5:45 PM CDT [facility] Comment:HIV-1 p24 and HIV-1/ HIV-2 Ab not detected. Blood BLOOD SPECIMEN / Unknown Venipuncture / Unknown 05/27/2021 11:54 AM CDT 05/27/2021 11:54 AM CDT us Radha Castaneda MD SEND OUTS Final Resul t [facility] [address] [place] [address], [place] * GRAIN ELEVATOR CLERK THIN PREP PAP SCREEN IMAGED (05/27/2021 11:35 AM CDT) Case Report Gynecologic Cytology Report Case: [id number] Authorizing Provider: Radha Castaneda MD Collected: 05/27/2021 1135 Ordering Location: [facility] Received: 05/27/2021 1156 Clinic First Screen: Marbella Manuel Pathologist: Carla Castro MD Specimen: GRAIN ELEVATOR CLERK ThinPrep Vial Screening, Cervical 06/09/2021 11:58 AM CDT [facility] INTERPRETATION/ RESULT NEGATIVE FOR INTRAEPITHELIAL LESION OR MALIGNANCY (NIL) (none) 06/09/2021 11:58 AM CDT [facility] R NON-NEOPLASTIC FINDING(S) Reactive cellular changes associated with inflammation/repa ir 06/09/2021 11:58 AM CDT [facility] [employer] ENTRAL LABORATORY SPECIMEN ADEQUACY Satisfactory for evaluation Endocervical component present 06/09/2021 11:58 AM CDT [facility] [employer] [facility] HPV REQUEST HPV and PAP 06/09/2021 11:58 AM CDT [facility] LAB[facility] Date of LMP 05/12/2021 06/09/2021 11:58 AM CDT [facility] Last Pap Date 06/10/15 06/09/2021 11:58 AM CDT [facility] Last Pap Result NIL 11:58 AM CDT [facility] Abnormal Pap or [place] Bx in last 5 years No 06/09/2021 11:58 AM CDT [facility] Menstrual Status Regular Periods 06/09/2021 11:58 AM CDT [facility] [place] Bx Done Today No 06/09/2021 11:58 AM CDT [facility] Additional Information None given 06/09/2021 11:58 AM CDT [facility] Comment: Cytology is screened at [facility] - [address], [place] [address] and [facility] - [address] [place] [address] and [facility] - [address] [place] [address] Interpreted at [facility] - [address], [place] [address] Automated Review Successful 06/09/2021 11:58 AM CDT [facility] Comment:Specimen processed s uccessfully by automated hog confinement system manager device, ThinPrep Imaging System, [employer] ANCILLARY TESTING GRAIN ELEVATOR CLERK HPV Ordered, Please see separate report 06/09/2021 11:58 AM T [facility] Note The pap test is [...] and malignant lesions. 06/09/2021 11:58 AM CDT [facility] Other (Cervical) Non-Blood / Unknown 05/27/2021 11:35 AM CDT 05/27/2021 11:56 AM CDT us Radha Castaneda MD PATHOLOGY/CYTOLOGY Final Re sult [facility] [address] [place] [address], [place] from Last 3 Months or Most Recently Relevant to Health Maintenance Insurance [place] [address] Advance Directives * Full Code (Latest Code [...]
[2024-11-21] MEDS: LACTATED RINGERS 1000 ML 1,000 ML 100 ML IV ×2 (08:40→13:32)
[2024-11-21] MEDS: SODIUM CHLORIDE 0.9 % (FLUSH) 10 ML SYRINGE IVF ×2 (08:40→18:15)
[2024-11-21] MEDS: PHENAZOPYRIDINE HCL 200 MG TABLET PO (08:45)
[2024-11-21 09:07] LABS: Hemoglobin* 12.9 gm/dL (12.0-16.0)
[2024-11-21] MEDS: CEFAZOLIN 2 GM INJ IVP (10:35)
--- NOTE | 2024-11-21 10:36 | P.NB_ITS ---
Nerve Block Nerve Block Time Seen by Provider: 10:30 Date Seen: 11/21/24 Type of block requested by surgeon for post-operative analgesia: TAP Side: bilateral Time out performed: Yes Verification of patient name: Yes Verification of date of : Yes Site marking: site marked Name of person performing procedure: Nigel Continuous monitoring Was continuous monitoring of O2 sat, B/P, environmental monitoring specialist, recorded every 15 minutes?: Yes Procedure Checklist: sterile prep, needles and gloves Ultrasound guided. Images saved: Yes Medications given in 5ml increments after negative aspiration: Marcaine %: 0.25 mL: 30 Needle gauge: 20 and Exparel mL: 10 Patient tolerated procedure well: Yes Additional comments: Needle noted between internal oblique and transversus abdominus. Local spread visualized Block Charges Block Charge (with Pro Fee): TAP Bilateral Use of Ultrasound Machine for Block: Yes- US Guidance/pain block
--- NOTE | 2024-11-21 10:36 | W.ANESCHARGE ---
Anesthesia Charges Start Date/Time Anesthesia Start Date: 11/21/24 Anesthesia Start Time: 10:15 Stop Date/Time Anesthesia Stop Date: 11/21/24 Anesthesia Stop Time: 14:13
[2024-11-21] MEDS: 0.9 % SODIUM CHLORIDE 50 ml INJECTION (13:26)
[2024-11-21] MEDS: LIDOCAINE 1% MDV 20 ML INJECTION (13:26)
[2024-11-21] MEDS: BUPIVACAINE 0.5% 30 ML INJECTION (13:29)
[2024-11-21] MEDS: KETOROLAC 30 MG/ML inj IVP ×2 (13:32→20:06)
--- NOTE | 2024-11-21 14:05 | P.GYNPRC_ITS ---
Procedure Note Date of procedure: 11/21/24 Will [facility] bill your pro fee for this procedure?: Yes Pre-op diagnosis: Abnormal uterine bleeding Dysmenorrhea Stress urinary incontinence Procedure: Total laparoscopic hysterectomy, bilateral salpingectomy, retropubic mid urethral sling, diagnostic cystoscopy Anesthesia: GETA Complications: None Surgeon: Juan Luis Hunter MD Accessories Repairer: Miriam Trivedi Estimated blood loss (mL): 100 IV fluids (mL): 1,200 Urine Output (mL): 450 Pathology: specimen obtained, sent to pathology Condition: stable Disposition: observation Findings: Unremarkable upper abdominal survey Moderately enlarged and globular uterus, otherwise unremarkable Normal bilateral fallopian tubes and ovaries Unremarkable diagnostic cystoscopy, robust bilateral ureteral efflux Procedure Description: Patient was taken to the operating room with IV running. She received cefazolin in preoperative prophylaxis. She was positioned in dorsal lithotomy position with her legs fully supported in Yellofin stirrups. General anesthesia was administered. She was prepped and draped in the usual sterile fashion. Pelvic exam under anesthesia was performed for the above-noted findings. Speculum was inserted. Cervix visualized and grasped along its anterior lip with a single-tooth tenaculum. Cervix was dilated with Hegar dilators to accommodate the VCare uterine manipulator. An large size colpotomizer cup was selected. The tip of the uterine manipulator was inserted through the cervix into the uterine cavity and the balloon was inflated. The speculum was removed. The colpotomy cup was advanced, surrounding the cervix, and the proximal o ccluder was moved up along the shaft of the VCare and fixed in place. Scruggs catheter was placed. Patient's legs were then placed in neutral position. Attention was turned to patient's abdomen. She had had a prior abdominoplasty and umbilical hernia repair, where the distance between her pubic bone and umbilicus was somewhat foreshortened. A supraumbilical area was infiltrated with a small amount of Marcaine. A 12 mm infraumbilical incision was made with a scalpel and carried down to the underlying layer of fascia with the hemostat. The fascia was grasped with Sylvia clamps and elevated, fascial incision made with scalpel. A curved hemostat was utilized to enter peritoneum and gently stretch fascial incision. The fascia was tagged with 0 vicryl and straights removed. Gar trocar was introduced to the peritoneal cavity, balloon inflated. 10mm camera inserted and high flow initiated. Pneumoperitoneum was achieved, where careful attention was paid below site of entry - no injury or b leeding noted. Upper abdominal survey was completed, revealing normal anatomy. She did have some adhesion between the cecum and anterior abdominal wall. Patient was put into Trendelenburg, pelvic survey noted normal uterus, bilateral fallopian tubes and ovaries with details as noted above. Two additional port sites were created bilaterally just superiomedial to the ASIS. These incisions and trocars were 5 mm inside, inserted under direct visualization and without complication. The balloon on each of the ports was inflated, holding each in place. Attention was first turned to the left adenxa, where the ureter could be easily visualized transperitoneally. The left fallopian tube was divided from the mesosalpinx, using the Ligasure bipolar cautery device, proceeding laterally to medially, and the tube was amputated at the left uterine cornua. This was removed through the port site and sent to pathology. This procedure was repeated on the patient's right side, and the right fallopian tube was also amputated at the cornua, removed from the patient's abdomen and sent for pathologic evaluation. The left round ligament was cauterized and transected with the Ligasure device. The anterior peritoneal reflection was opened and developed using a combination of sharp and electrocautery dissection, creating a bladder flap to the midline of the uterus. The left utero-ovarian ligament was cauterized and transected, and the remnants of the left broad ligament were cauterized and transected between these two structures. The left ovary was noted to be somewhat adhesed along the posterolateral uterus, where care was made to free this while minimizing trauma to ovarian tissue. Attention was then turned to the right side of the pelvis, where salpingectomy had already been performed. The ureter was again readily visualized transperitoneally. The round ligament was opened on the right, where the bladder flap was further developed moving laterally to medially to meet the left sided dissection. Care was made to drop the bladder reflection to well below the planned site of colpotomy using colpotomizer cup as a landmark. Using the colpotomizer cup as a guide, the peritoneum and underlying stroma was dissected off the anticipated site of colpotomy over the posterior vaginal fornix. The right uterine vessels were serially coagulated using Ligasure. We then returned to the left side, where the left uterine vessels were serially coagulated using Ligasure. The left uterine vessels were coagulated once more then transected, noted to drop laterally away from the site of planned colpotomy. The right uterine vessels were similarly transected and noted to drop lateral to site of colpotomy. Survey was completed to ensure clear dissection plane of the planned colpotomy, where the colpotomizer cup could be palpated circumferentially. The vaginal fornix was then entered at the right lateral margin using the [facility] monopolar spatula using the colpotomizer as a guide. The device was moved along the colpotomizer cup circumferentially, in a counter clockwise fashion. The uterus and cervix were freed from their attachments to the pelvis. The uterus and cervix were was pulled into the patient's vagina and removed. Specimens sent for pathologic evaluation. I proceeded with vaginal cuff closure from a vaginal approach, where the legs were placed back into lithotomy position. A weighted speculum and anterior Bro were inserted, to allow for visualization of the vaginal cuff. A lap sponge was inserted vaginally to push the bowel cephalad for cuff closure. The left cuff margin was grasped with a Nika, where a 0 vicryl pop-off was utilized to secure the left cuff margin making care to incorporate the distal uterosacral ligament. Stitch was tagged to brendan the corner. The same was performed on the patient's right, again making sure to secure the right cuff corner and incorporate the uterosacral ligament for apical support. The remainder of the cuff was closed with simple interrupted sutures, making care to include the peritoneum and vaginal mucosa. Just prior to the midline cuff closure, the bowel pack lap sponge was removed. Cuff was noted to be intact with no obvious active bleeding. All sutures were cut. The Scruggs catheter was removed from the bladder, and the cystoscope was assembled with saline inflow, outflow, and light cord in place. The patient was given PO pyridium prior to the procedure to aid with ureteral efflux identification. Cystoscope was advanced through the urethra into the bladder, and survey of the mucosa revealed a normal appearance. The bladder dome was intact. Bilateral ureteral jets were noted. Cystoscope was removed and Scruggs catheter replaced. Patient's legs were again placed in neutral position. Insufflator was reattached to the port and pneumoperitoneum again achieved. Survey of the pelvis revealed excellent hemostasis on the right and across the vaginal cuff. Oozing was noted from the left pelvic sidewall peritoneum, this was coagulated with ligasure from the round ligament up to the level of the ovary. Improvement in hemostasis was noted, where Susan was subsequently applied to reinforce hemostasis. Low pressure test was conducted with excellent hemostasis noted. All ports were removed under direct visualization. Pneumoperitoneum was released. A figure of eight stitch with 0 vicryl was utilized to close the supraumbilical fascial incision, and the previously tagged fascial sutures were additionally tied together. The skin of each port site was closed in a subcuticular fashion with 4 0 Monocryl. Surgical glue was applied above this. Attention was then turned to the retropubic midurethral sling. The mons was marked in the midline with a marker, extending from just above the clitoral maradiaga in the midline to just above the pubic symphysis. A brendan was made approximately 2 cm just to the right and to the left of the midline, just over the pubic bone. 30 mL of saline was injected into the retropubic space just behind the pubic bone bilaterally. A stab incision was made on each of these buckner. A weighted speculum was placed in the vagina. The anterior vaginal wall was grasped in the midline 1 cm beneath the urethral meatus with an Allis clamp, and a 2nd Allis clamp was placed at the urethrovesical junction. The intervening anterior vaginal wall was infiltrated with 1% lidocaine carrying this infiltration to the pubic bone bilaterally. A 1.5 cm incision was made in the anterior vaginal wall, and Metzenbaum scissors were used to dissect the subepithelial tunnel from that incision to the pubic bone, both to the right and the left of the urethra. The Scruggs catheter was removed. A rigid catheter guide was placed inside a 16 Slovak catheter, this was inserted into the bladder. Attention was first turned to placement of the right trocar. The trocar was placed within the blue plastic sheath. The trocar tip was inserted through the vaginal subepithelial tunnel on the patient's right side, and slowly guided upwards just behind the posterior aspect of the pubic bone, until the tip of the trocar was guided through the stab incision on the patient's right side. The bladder was deviated to the patient's left with the rigid catheter guide during this time. The plastic sheath was disconnected from the trocar, and the tip was grasped with hemostat. The trocar was then placed within the blue plastic sheath at the other end of the mesh. The trocar tip was inserted through the vaginal subepithelial tunnel on the patient's left side, and slowly guided upward just behind is posterior aspect of the pubic bone, until the tip of the trocar was guided through the stab incision on the patient's left side. The bladder was deviated to the patient's right with the rigid catheter guide during this time. The plastic sheath was again disconnected from the trocar, and the tip was grasped with a hemostat. Cystoscopy was then performed, revealing no injury to the bladder mucosa and the plastic sheaths were found to be freely movable outside the bladder dome. Scruggs catheter was again inserted. The blue plastic sheaths were pulled through the stab incisions just above the pubic bone, and the mesh was tensioned over a #9 Hegar dilator. The mesh was trimmed to beneath the skin on her abdomen, and the sites were closed with surgical glue. There was small volume oozing noted from the left subepithelial tunnel, addressed with electrocautery and packed with Surgicel. Excellent hemostasis was noted. The vaginal incision was closed with a running, locked stitch of 2 0 Vicryl. A plain vaginal packing was inserted. Patient tolerated procedure well and was taken to recovery area in stable condition.
[2024-11-21] MEDS: fentaNYL 100 MCG/2 ML inj 50 MCG IVP ×2 (14:31→14:42)
--- NOTE | 2024-11-21 14:52 | SUR.PHASEI ---
Patient came to PACU awake and complaining of pressure. When asked for a pain scale number patient stated a level 8. She stated like severe cramping. Two doses of Fentanyl given and patient stated the second dose made a big difference in pain management. Patient meets discharge criteria from PACU
[2024-11-21] MEDS: ACETAMINOPHEN 500 MG TABLET 1000 MG PO ×2 (16:45→23:11)
[2024-11-21] MEDS: OXYCODONE 5 MG TABLET PO ×2 (16:46→21:36)
[2024-11-21] MEDS: ONDANSETRON 2 MG/ML inj 4 MG IVP (19:24)
[2024-11-21] MEDS: SIMETHICONE 80 MG TAB.CHEW 160 MG PO (21:36)
[2024-11-22 01:56] VITALS: BP 107/62; PULSE 72; RESP 16; TEMP 36.9; O2SAT 98
[2024-11-22] MEDS: KETOROLAC 30 MG/ML inj IVP (01:57)
[2024-11-22] MEDS: SODIUM CHLORIDE 0.9 % (FLUSH) 10 ML SYRINGE IVF (01:57)
[2024-11-22 05:09] VITALS: BP 116/71; PULSE 75; RESP 20; TEMP 36.8; O2SAT 100
[2024-11-22] MEDS: ACETAMINOPHEN 500 MG TABLET 1000 MG PO (05:12)
[2024-11-22] MEDS: OXYCODONE 5 MG TABLET PO ×2 (05:13→09:38)
[2024-11-22 06:16] VITALS: O2SAT 97
[2024-11-22 07:02] LABS: Hemoglobin* 11.7 gm/dL (12.0-16.0)
[2024-11-22 07:19] VITALS: BP 110/72; PULSE 62; RESP 16; TEMP 37; O2SAT 96
[2024-11-22 07:42] VITALS: O2SAT 96
[2024-11-22] MEDS: IBUPROFEN 600 MG TABLET PO (08:19)
--- NOTE | 2024-11-22 08:38 | PM.GYNDS1 ---
DS: Providers Provider Date Seen: 11/22/24 Primary care physician: Rei Pat MD Attending Physician on discharge: Gina Hunter MD SHREDDING MACHINE TENDER-Discharge Summary Hospital Course Hospital Course Narrative: Patient is a 39 year old admitted on 11/21/24 for total laparoscopic hysterectomy, bilateral salpingectomy, retropubic midurethral sling, diagnostic cystoscopy. Indication for surgery: abnormal uterine bleeding, dysmenorrhea, stress urinary incontinence. Intraoperative findings were largely unremarkable, please see my operative note for complete details. She had an uncomplicated surgery. Postoperative course has been uneventful. Vitals have been stable. She has remained afebrile. Today, on postoperative day 1, she reports the pain is well controlled. She has been able to ambulate Without difficulty. She is tolerating regular diet. She is passing flatus. Scruggs catheter has remained in situ as vaginal pack is in, plan to remove now and proceed with void trial. No vaginal bleeding noted around pack. Prior to dismissal, a void trial was completed where the bladder was backfilled with 300 mL of sterile saline. Catheter was removed. Patient was subsequently able to void 400 mL spontaneously. No evidence of urinary retention. Dismissal to home. Time Spent with Patient Time attestation: Total time spent providing and/or coordinating discharge services: Time spent: Less than 30 minutes SHREDDING MACHINE TENDER - Exam Physical Exam: Vital signs: Temp Pulse Resp BP Pulse Ox O2 Del Method O2 Flow Rate 98.6 F 62 16 110/72 96 Room Air 1 11/22/24 07:19 11/22/24 07:19 11/22/24 07:19 11/22/24 07:19 11/22/24 07:42 11/22/24 07:42 11/22/24 05:09 Narrative: General: Alert and oriented, no acute distress Psych: Appropriate mood and affect Abdomen: Soft, nondistended. Mild tenderness to palpation in the lower quadrant, consistent with postoperative state. No rebound or guarding. Incisions are all well approximated, with overlying surgical glue. No erythema/ecchymosis. Pelvic: External genital exam is within normal limits, small roman sized vulvar hematoma noted on the left labia majora. Vaginal packing removed, scant serosanguineous drainage noted. SHREDDING MACHINE TENDER - DS: Data Data Completed and Pending Labs on day of discharge: Labs from last 24 hours 11/22/24 11/21/24 06:50 08:56 Hgb 11.7 L 12.9 Blood Type O Positive Antibody Screen NEGATIVE Procedures Procedures: Procedures Operation Date: 11/21/24 10:15 Actual Procedure Side Surgeon p Total Laparoscopic Hysterectomy, Bilateral Salpingectomy, Diagnostic Cystoscopy Gina Hunter MD s Retro Pubic Mid Ureteral Sling Gina Hunter MD Discharge Plan Discharge Disposition: Home w/ Parent or Adult Discharging Surgeon: Gina Hunter Follow-Up Appointment: 2 and 6 weeks post-op Prescriptions: New oxycodone 5 mg Tablet 5 mg PO Q4H PRN (Reason: Moderate Pain) Qty: 15 0RF Activity Level: Activity as Tolerated Activity Detail: No lifting more than 15lbs for 6 weeks Discharge Diet: Regular Patient Instructions: Deep Sedation (DC), Bladder Sling for Women (DC) Additional Instructions: Lifting restrictions: Please do not lift more than 15lbs for 6 weeks Sexual restriction: Pelvic rest for 6 weeks Pain control: Over the counter Motrin 600 mg by mouth every six hours on a full stomach for pain as needed Over the counter Acetaminophen 1000 mg by mouth every six hours on a full stomach for pain as needed Oxycodone 5mg every 4 hours as needed for breakthrough pain Please call with: - Heavy vaginal bleeding - Increasing or severe abdominal pain - Fevers/chills - Inability to tolerate solid/liquids by mouth, recurrent nausea/vomiting - Incision redness/drainage - Signs or symptoms of a blood clot - calf pain, redness, swelling, chest pain or shortness of breath Follow-up: Rei Pat MD [Primary Care Provider] - Discharge Orders: Discharge Order (Routine); Ordered 11/22/24 Ordered By: Gina Hunter
--- NOTE | 2024-11-22 12:15 | PM.ANPOST ---
Post Anesthesia Note Post Anesthesia Note Patient seen: Inpatient Respiratory Status: adequate Cardiovascular Status: adequate Mental Status: baseline Pain: adequate Temp: baseline Anesthetic awareness: N/A Complications: none Follow care: none
== END 2024-11-22 10:25 | disposition home or self-care (01) ==
LOC: OR 08:25 → OB 08:25
PROVIDERS: PCP Surgery; Visit Provider Obstetrics & Gynecology
PROC: 0UT94ZZ Resection of Uterus, Percutaneous Endoscopic Approach (ICD-10-PCS; CPT 58571; principal; 2024-11-21 10:00)
PROC: (CPT 57288; 2024-11-21 10:00)
DX: N93.8 Other specified abnormal uterine and vaginal bleeding (principal); N94.6 Dysmenorrhea, unspecified; N39.3 Stress incontinence (female) (male); G89.18 Other acute postprocedural pain; N92.0 Excessive and frequent menstruation with regular cycle
CPT/HCPCS: 58571; 57288; 00840; 36415; 64488; 76942; 81025; 85018; 86850; 86900; 86901; 88307; 94761; J2003; A4314; A9270; C1771; J0330; J0665; J0666; J0690; J1630; J1885; J2250; J2405; J2704; J3010; J3490; J7120